=== PATIENT | male | born 1975 | race Hispanic/Latino ===

== ENCOUNTER 2018-01-02 03:17 | Inpatient (IN) | payer BC ==
[2018-01-02 03:50] LABS: BASO % 0.8 % (0.0-2.0); EOS # 0.1 K/uL (0.0-0.7); EOS % 2.2 % (0.0-4.0); HEMOGLOBIN 14.5 g/dL (12.0-18.0); LYMPH # 1.6 K/uL (1.0-4.3); LYMPH % 28.8 % (20.0-40.0); MEAN CELL VOLUME 95.3 fL (80.0-94.0); MEAN CORPUSCULAR HEMOGLOBIN 32.7 pg (27.0-31.0); MEAN CORPUSCULAR HGB CONC 34.3 g/dL (33.0-37.0); MEAN PLATELET VOLUME 8.3 fL (7.2-11.7); MONO # 0.5 K/uL (0.0-0.8); MONO % 8.4 % (0.0-10.0); NEUT # 3.4 K/uL (1.8-7.0); NEUT % 59.8 % (50.0-75.0); NRBC % 0.1 % (0.0-2.0); RBC 4.42 Mil/uL (4.40-5.90); RED CELL DISTRIBUTION WIDTH 15.3 % (11.5-14.5); WHITE BLOOD COUNT 5.7 K/uL (4.8-10.8)
[2018-01-02 03:59] LABS: INR 1.1; PROTHROMBIN TIME 11.8 SECONDS (9.7-12.2)
[2018-01-02 04:03] LABS: ALB/GLOB RATIO 1.4 (1.0-2.1); ALBUMIN 4.2 g/dL (3.5-5.0); ALT/SGPT 28 U/L (21-72); AST/SGOT 22 U/L (17-59); BLOOD UREA NITROGEN 13 mg/dL (9-20); CALCIUM 8.4 mg/dl (8.6-10.4); GFR NON-AFRICAN AMERICAN > 60
[2018-01-02 04:15] LABS: B-TYPE NATRIURETIC PEPTIDE 712 pg/mL (0-450)
[2018-01-02] MEDS ORDERED: Iodixanol 320 MG/ML 100 ML BOTTLE IV ONE (04:42)
--- NOTE | 2018-01-02 06:29 | C.PDOC ---
History Of Present Illness <John Chiang DO - Last Filed: 01/02/18 06:42> <Jennifer Patrick - Last Filed: 01/02/18 07:30> 42 y/o male presents to the ED c/o mild SOB for the past three. The patient reports feeling like his heart is racing. He has a Hx of CHF but is noncompliant with his medication for the past two months. The patient denies any fever, cough or chest pain. (Mariia OLIVARESJohn) History Per: Patient History/Exam Limitations: no limitations Onset/Duration Of Symptoms: Days Current Symptoms Are (Timing): Still Present Exacerbating Factor(s): denies: Coughing Associated Symptoms: denies: Fever, Chest Pain, Productive Cough Recent travel outside of the [place]: No <John Chiang DO - Last Filed: 01/02/18 06:42> <Jennifer Patrick - Last Filed: 01/02/18 07:30> Time Seen by Provider: 01/02/18 03:28 Chief Complaint (Nursing): Shortness Of Breath Past Medical History Reviewed: Historical Data, Nursing Documentation, Vital Signs - Medical History PMH: Atrial Fibrillation, Cardia Arrhythmia, CHF, HTN, TIA Surgical History: No Surg Hx Family History: States: Unknown Family Hx - Social History Hx Tobacco Use: Yes Hx Alcohol Use: Yes (3 x a week) Hx Substance Use: No - Immunization History Hx Tetanus Toxoid Vaccination: No Hx Influenza Vaccination: No Hx Pneumococcal Vaccination: No <John Chiang DO - Last Filed: 01/02/18 06:42> Vital Signs: Last Vital Signs Temp 98.6 F 01/02/18 03:22 Pulse 98 H 01/02/18 06:27 Resp 20 01/02/18 06:27 BP 94/64 L 01/02/18 06:27 Pulse Ox 95 01/02/18 06:43 Review Of Systems Except As Marked, All Systems Reviewed And Found Negative. Constitutional: Negative for: Fever Cardiovascular: Negative for: Chest Pain Respiratory: Positive for: Shortness of Breath. Negative for: Cough <John Chiang DO - Last Filed: 01/02/18 06:42> Physical Exam - Physical Exam Appears: Well, Non-toxic, No Acute Distress Skin: Normal Color, Warm, Dry Head: Atraumatic, Normacephalic Eye(s): bilateral: PERRL, EOMI Oral Mucosa: Moist Chest: Symmetrical Cardiovascular: Rhythm Irregular, Other (chronic renal stasis) Respiratory: Rales (at the base) Gastrointestinal/Abdominal: Soft, No Tenderness, Other (morbidly obese) Extremity: No Calf Tenderness Extremity: Bilateral: Other (LE edema) Neurological/Psych: Oriented x3, Normal Speech <John Chiang DO - Last Filed: 01/02/18 06:42> ED Course And Treatment - Laboratory Results Result Diagrams: 01/02/18 03:47 01/02/18 03:47 ECG: Interpreted By Me Interpretation Of ECG: A-Fib 116 bpm with normal axis O2 Sat by Pulse Oximetry: 95 (RA) Pulse Ox Interpretation: Normal - Other Rad Chest X-Ray: Interpreted by Me Interpretation: CHF. No change - CT Scan/US Angio Chest Other Rad Studies (CT/US): Read By Radiologist, Radiology Report Reviewed CT/US Interpretation: FINDINGS: Pulmonary arteries: The pulmonary artery enhancement is less than 137 Hounsfield unit. Pulmonary embolus cannot be evaluated. Aorta: Normal. No aortic aneurysm. No aortic dissection. Lungs: Mild parabronchial cuffing, with mild basilar infiltration which can be seen with bronchitis,. reactive airway disease or viral pneumonitis versus mild failure. Pleural space: Normal. No pneumothorax. No pleural effusion. Heart: Cardiomegaly. Mediastinum: There is amorphous material within the esophagus to the level of upper thoracic. esophagus. These findings can represent delayed emptying versus gastroesophageal reflux. Possible. upper esophageal diverticulum versus patulous esophagus seen on image 29 series 2. Small hiatal. hernia. Bones/joints: There are anterior flowing osteophytes bridging more than 4 vertebral bodies. suggestive of dish. Soft tissues: Bilateral gynecomastia. Lymph nodes: Small hilar lymph nodes. Adrenals: The left adrenal gland is incompletely seen. IMPRESSION: 1. The pulmonary artery enhancement is less than 137 Hounsfield unit despite 2 attempts. Pulmonary. embolus cannot be evaluated. 2. Mild parabronchial cuffing, with mild basilar infiltration which can be seen with bronchitis, reactive. airway disease or viral pneumonitis versus mild failure. <John Chiang DO - Last Filed: 01/02/18 06:42> - Laboratory Results Result Diagrams: 01/02/18 03:47 01/02/18 03:47 <Ho,Jennifer - Last Filed: 01/02/18 07:30> Progress <John Chiang DO - Last Filed: 01/02/18 06:42> - Data Reviewed Data Reviewed: Lab, Diagnostic imaging, EKG, Old records <Jennifer Patrick - Last Filed: 01/02/18 07:30> - Re-Evaluation Re-evaluation Note: 01/02/18 07:24 NARD SLEEPING BUT AROUSE TO LIGHT STIM. [id number] D/W DR Rehana LYONS, STATES IS AWAY AND TO ADMIT PT TO HOSP SERVICE 01/02/18 07:28 D/W DR LEYVA WILL ADMIT (Jennifer Patrick) Medical Decision Making <John Chiang DO - Last Filed: 01/02/18 06:42> <Jennifer Patrick - Last Filed: 01/02/18 07:30> Medical Decision Making: Impression: 42 y/o male with mild SOB, Hx CHF and nonncomplaint with meds for 2 months Plan: -CT Angio CHest -EKG -Alcohol Serum -B-Type natriuretic -CMP -Digoxin -Troponin I -CBC -PTT -PT -Chest X-Ray -Lasiz 40 mg IV (John Chiang DO) Disposition <John Chiang DO - Last Filed: 01/02/18 06:42> Counseled Patient/Family Regarding: Studies Performed, Diagnosis - Disposition Disposition Time: 07:28 - POA Present On Arrival: None <Jennifer Patrick - Last Filed: 01/02/18 07:30> - Disposition Disposition: HOSPITALIZED Condition: STABLE Forms: [facility] (Italian) - Clinical Impression Clinical Impression: Alcohol use, Dyspnea, CHF exacerbation, Noncompliance Decision To Admit <John Chiang DO - Last Filed: 01/02/18 06:42> - Pt Status Changed To: Hospital Disposition Of: Observation - . Bed Request Type: Telemetry Admitting Physician: Casandra Leyva <Jennifer Patrick - Last Filed: 01/02/18 07:30> - . Patient Diagnosis: Alcohol use, Dyspnea, CHF exacerbation, Noncompliance
[2018-01-02] MEDS ORDERED: Digoxin 500 mcg/2ml (0.5 mg/2ml) Inj IVP STA (06:49)
[2018-01-02 06:55] VITALS: PULSE 105
[2018-01-02] MEDS ORDERED: Digoxin 500 mcg/2ml (0.5 mg/2ml) Inj ONE (06:55)
--- NOTE | 2018-01-02 09:18 | CP.PCM.HP ---
History of Present Illness - History of Present Illness History of Present Illness: PGY-[address] Mclean Patient is a 42 year old male with PMHx CHF, COPD, Afib w/ RVR, alcohol absuse, obesity, medication noncompliance who presents with acute shortness of breath. Patient states that for about the last two days he has becoming increasingly short of breath. Patient states he was drinking last night from 4pm-12am and when he woke up he was having difficulty breathing worse. He has been hospitalized in the past for similar complaints. Pt states his shortness of breath is worse when lying down. Patient states that he takes his medications every day as prescribed, however when I called the pharmacy, they told me he last filled his prescriptions in September and has been long overdue for refills. Patient states he drinks beer 2-3 times/week and has a 20+ pack-year history (1 pack/day). Patient denies dizziness, headache, chest pain, palpitations. Present on Admission - Present on Admission Any Indicators Present on Admission: No Review of Systems - Constitutional Constitutional: absent: Chills, Fatigue, Fever - EENT Eyes: absent: Blurred Vision, Change in Vision Nose/Mouth/Throat: absent: Nasal Congestion, Nasal Discharge, Nasal Obstruction - Cardiovascular Cardiovascular: Dyspnea, Edema (+b/l pedal edema), Leg Edema, Pedal Edema, Rapid Heart Rate. absent: Chest Pain - Respiratory Respiratory: Dyspnea, Wheezing. absent: Cough, Hemoptysis, Chest Congestion, Pain with Coughing - Gastrointestinal Gastrointestinal: absent: Abdominal Pain, Constipation, Cramping, Diarrhea - Musculoskeletal Musculoskeletal: absent: Back Pain, Muscle Weakness, Neck Pain - Neurological Neurological: absent: Abnormal Gait, Abnormal Movements, Dizziness, Headaches, Syncope Past Patient History - Infectious Disease Hx of Infectious Diseases: None - Past Social History Smoking Status: Heavy Smoker > 10 Cigarettes Daily - CARDIAC Hx Atrial Fibrillation: Yes Hx Cardia Arrhythmia: Yes Hx Congestive Heart Failure: Yes Hx Hypertension: Yes - NEUROLOGICAL Hx Transient Ischemic Attacks (TIA): Yes - MUSCULOSKELETAL/RHEUMATOLOGICAL Hx Falls: Yes - PSYCHIATRIC Hx Substance Use: No - ANESTHESIA Hx Anesthesia: Yes Hx Anesthesia Reactions: No Hx Malignant Hyperthermia: No Meds Allergies/Adverse Reactions: Allergies Allergy/AdvReac Type Severity Reaction Status Date / Time No Known Allergies Allergy Unverified 01/02/18 03:28 Physical Exam - Constitutional Appears: No Acute Distress Additional comments: Fatigued/intoxicated - Head Exam Head Exam: ATRAUMATIC, NORMAL INSPECTION - Eye Exam Eye Exam: EOMI, Normal appearance Pupil Exam: NORMAL ACCOMODATION, PERRL - ENT Exam ENT Exam: Mucous Membranes Moist, Normal Exam - Respiratory Exam Respiratory Exam: Wheezes. absent: Accessory Muscle Use, Decreased Breath Sounds, Rales - Cardiovascular Exam Cardiovascular Exam: Tachycardia, Irregular Rhythm, +S1, +S2 - GI/Abdominal Exam GI & Abdominal Exam: Normal Bowel Sounds, Soft Additional comments: +abdominal hernia - Extremities Exam Extremities exam: Positive for: pedal edema, pedal pulses present - Neurological Exam Neurological exam: CN II-XII Intact, Normal Gait, Oriented x3 - Skin Skin Exam: Intact, Warm Additional comments: +Skin mottling/chronic skin changes on lower extremities b/l Results - Vital Signs Recent Vital Signs: Last Vital Signs Temp 98.6 F 01/02/18 03:22 Pulse 125 H 01/02/18 07:32 Resp 25 H 01/02/18 07:32 BP 128/88 01/02/18 07:32 Pulse Ox 100 01/02/18 07:32 - Labs Result Diagrams: 01/02/18 03:47 01/02/18 03:47 Labs: Laboratory Results - last 24 hr 01/02/18 01/02/18 01/02/18 03:47 03:47 03:47 WBC 5.7 RBC 4.42 Hgb 14.5 Hct 42.2 MCV 95.3 H MCH 32.7 H MCHC 34.3 RDW 15.3 H Plt Count 186 MPV 8.3 Neut % (Auto) 59.8 Lymph % (Auto) 28.8 [place] % (Auto) 8.4 Eos % (Auto) 2.2 Baso % (Auto) 0.8 Neut # (Auto) 3.4 Lymph # (Auto) 1.6 [place] # (Auto) 0.5 Eos # (Auto) 0.1 Baso # (Auto) 0.0 PT INR APTT Sodium 137 Potassium 3.7 Chloride 101 Carbon Dioxide 18 L Anion Gap 22 H BUN 13 Creatinine 0.9 Est GFR ( Amer) > 60 Est GFR (Non-Af Amer) > 60 Random Glucose 111 H Calcium 8.4 L Total Bilirubin 0.8 AST 22 ALT 28 Alkaline Phosphatase 57 Troponin I < 0.0120 NT-Pro-B Natriuret Pep 712 H Total Protein 7.2 Albumin 4.2 Globulin 3.0 Albumin/Globulin Ratio 1.4 Digoxin < 0.4 L Alcohol, Quantitative 01/02/18 01/02/18 03:47 04:20 WBC RBC Hgb Hct MCV MCH MCHC RDW Plt Count MPV Neut % (Auto) Lymph % (Auto) [place] % (Auto) Eos % (Auto) Baso % (Auto) Neut # (Auto) Lymph # (Auto) [place] # (Auto) Eos # (Auto) Baso # (Auto) PT 11.8 INR 1.1 APTT 35 H Sodium Potassium Chloride Carbon Dioxide Anion Gap BUN Creatinine Est GFR ( Amer) Est GFR (Non-Af Amer) Random Glucose Calcium Total Bilirubin AST ALT Alkaline Phosphatase Troponin I NT-Pro-B Natriuret Pep Total Protein Albumin Globulin Albumin/Globulin Ratio Digoxin Alcohol, Quantitative 263 H Assessment & Plan - Assessment and Plan (Free Text) Assessment: 1)A Fib with RVR * CBC w dif * CMP * BMP 712 * Coags - INR 1.1 * Mag * TSH * EKG - AFib RVR * Echo - read pending * Cardio consulted - Dr. Moe - help appreciate * Restart home meds * Warfarin 5mg po daily * Protonix 40 mg po daily * Lipitor 40 po daily * Coreg 25 mg po dialy * Lasix 20 po daily * lisinopril 20 po daily * Folic acid 4 mg daily 2) CHF * CBC w dif * CMP * BMP 712 * Coags - INR 1.1 * Mag * TSH * EKG - AFib RVR * Echo - read pending * Cardio consulted - Dr. Moe - help appreciated * Restart home meds * Warfarin 5mg po daily * Protonix 40 mg po daily * Lipitor 40 po daily * Coreg 25 mg po dialy * Lasix 20 po daily * lisinopril 20 po daily * Folic acid 4 mg daily * Thiamine 100 mg daily * Heart healthy diet * Meds: * Asa 81 daily * Crestor 10 po HS 3) COPD, 24 pack-year smoker * CBC w dif * CMP * BMP 712 * Coags - INR 1.1 * Mag * TSH * Restart home meds * Warfarin 5mg po daily * Protonix 40 mg po daily * Lipitor 40 po daily * Coreg 25 mg po dialy * Lasix 20 po daily * lisinopril 20 po daily * Folic acid 4 mg daily * Thiamine 100 mg daily * Continue to encourage smoking cessation 4) Obesity * Heart healthy diet 5) Prophylaxis * DVT: Lovenox 150 SC q12 * GI: Famotidine 20mg PO BID
[2018-01-02 09:31] VITALS: RESP 20
--- NOTE | 2018-01-02 09:46 | CT ---
Date of service: 01/02/2018 PROCEDURE: CT Chest with contrast (Pulmonary Angiogram) HISTORY: SOB r/o PE COMPARISON: None available. TECHNIQUE: Axial computed tomography images were obtained of the chest in the pulmonary arterial phase of enhancement. Coronal and sagittal reformatted images were created and reviewed. Intravenous contrast dose: 100 cc Visipaque Radiation dose: Total exam DLP = 1117.69 mGy-cm. This CT exam was performed using one or more of the following dose reduction techniques: Automated exposure control, adjustment of the mA and/or kV according to patient size, and/or use of iterative reconstruction technique. FINDINGS: This examination is limited due to suboptimal contrast enhancement within the pulmonary arteries. PULMONARY ARTERIES: No gross some filling defects seen within the pulmonary trunk, right and left main lobar or proximal segmental branches. Distal pulmonary arteries cannot be adequately evaluated. AORTA: No acute findings. No thoracic aortic aneurysm. LUNGS: The mild passive/dependent type atelectasis both posterior lower lung santiago. No focal consolidation. . Mild peribronchial cuffing changes are present; rule out sequela of reactive/inflammatory airway disease or viral illness. PLEURAL SPACES: Unremarkable. No effusion or pneumothorax. HEART: The the the the LYMPH NODES: Multiple small nonspecific mediastinal lymph nodes are present. Central airways midline and patent. No large central endoluminal lesions. There is a hiatal hernia with wall thickening of the distal esophagus likely due to protrusion gastric mucosa. Possibility of esophagitis not excluded. BONES, CHEST WALL: Unremarkable. No fracture or destructive lesion OTHER FINDINGS: Changes of mild bilateral gynecomastia. Rounded low-attenuation focus within the posterolateral cortex left kidney likely representing a small cyst though Hounsfield units register in the in the upper teens suggest hyperdense cyst. Followup ultrasound could be performed to confirm. The seen IMPRESSION: Limited study demonstrating no definitive central pulmonary embolus. Repeat study could be performed if necessary. Cardiomegaly. Changes of bilateral gynecomastia.
--- NOTE | 2018-01-02 12:53 | RAD ---
Date of service: 01/02/2018 PROCEDURE: CHEST RADIOGRAPH, 1 VIEW HISTORY: chest pain COMPARISON: Comparison chest 02/25/2015 FINDINGS: LUNGS: Poor inspiration with low lung volumes, crowded bronchovascular markings and mild bibasilar atelectasis. PLEURA: No pneumothorax or pleural fluid seen. CARDIOVASCULAR: Marked cardiomegaly. OSSEOUS STRUCTURES: No significant abnormalities. VISUALIZED UPPER ABDOMEN: Normal. OTHER FINDINGS: None. IMPRESSION: Poor inspiration with low lung volumes, crowded bronchovascular markings and mild bibasilar atelectasis. Marked cardiomegaly.
[2018-01-02] MEDS: Enoxaparin 150 mg Syringe SC SCH (21:27)
[2018-01-03 08:24] LABS: INR 1.2; PROTHROMBIN TIME 12.8 SECONDS (9.7-12.2)
[2018-01-03 08:26] LABS: BASO # 0.1 K/uL (0.0-0.2); BASO % 1.1 % (0.0-2.0); EOS # 0.2 K/uL (0.0-0.7); EOS % 3.2 % (0.0-4.0); HEMOGLOBIN 15.9 g/dL (12.0-18.0); LYMPH # 1.1 K/uL (1.0-4.3); LYMPH % 22.6 % (20.0-40.0); MEAN CELL VOLUME 96.1 fL (80.0-94.0); MEAN CORPUSCULAR HEMOGLOBIN 32.9 pg (27.0-31.0); MEAN CORPUSCULAR HGB CONC 34.2 g/dL (33.0-37.0); MEAN PLATELET VOLUME 8.9 fL (7.2-11.7); MONO # 0.8 K/uL (0.0-0.8); MONO % 15.9 % (0.0-10.0); NEUT # 2.7 K/uL (1.8-7.0); NEUT % 57.2 % (50.0-75.0); NRBC % 0.1 % (0.0-2.0); RBC 4.83 Mil/uL (4.40-5.90); RED CELL DISTRIBUTION WIDTH 15.2 % (11.5-14.5); WHITE BLOOD COUNT 4.8 K/uL (4.8-10.8)
[2018-01-03 08:50] LABS: ALB/GLOB RATIO 1.3 (1.0-2.1); ALBUMIN 3.9 g/dL (3.5-5.0); ALT/SGPT 28 U/L (21-72); AST/SGOT 25 U/L (17-59); BLOOD UREA NITROGEN 16 mg/dL (9-20); CALCIUM 8.6 mg/dl (8.6-10.4); GFR NON-AFRICAN AMERICAN > 60
[2018-01-03] MEDS: Enoxaparin 150 mg Syringe SC SCH ×2 (10:20→21:24)
--- NOTE | 2018-01-03 10:37 | CP.PCM.CON ---
History of Present Illness - History of Present Illness History of Present Illness: CC: Cardiology Evaluation for A Fib Patient is a 42 year old male with PMHx CHF, COPD, Afib w/ RVR, alcohol absuse, obesity, medication noncompliance who presents with acute shortness of breath. Patient states that for about the last two days he has becoming increasingly short of breath. Patient states he was drinking last night from 4pm-12am and when he woke up he was having difficulty breathing worse. He has been hospitalized in the past for similar complaints. Pt states his shortness of breath is worse when lying down. Patient states that he takes his medications every day as prescribed, however when I called the pharmacy, they told me he last filled his prescriptions in September and has been long overdue for refills. Patient states he drinks beer 2-3 times/week and has a 20+ pack-year history (1 pack/day). Patient denies dizziness, headache, chest pain, palpitations. Present on Admission - Present on Admission Any Indicators Present on Admission: No Review of Systems - Constitutional Constitutional: absent: Chills, Fatigue, Fever - EENT Eyes: absent: Blurred Vision, Change in Vision Nose/Mouth/Throat: absent: Nasal Congestion, Nasal Discharge, Nasal Obstruction - Cardiovascular Cardiovascular: Dyspnea, Edema (+b/l pedal edema), Leg Edema, Pedal Edema, Rapid Heart Rate. absent: Chest Pain - Respiratory Respiratory: Dyspnea, Wheezing. absent: Cough, Hemoptysis, Chest Congestion, Pain with Coughing - Gastrointestinal Gastrointestinal: absent: Abdominal Pain, Constipation, Cramping, Diarrhea - Musculoskeletal Musculoskeletal: absent: Back Pain, Muscle Weakness, Neck Pain - Neurological Neurological: absent: Abnormal Gait, Abnormal Movements, Dizziness, Headaches, Syncope Meds Allergies/Adverse Reactions: Allergies Allergy/AdvReac Type Severity Reaction Status Date / Time No Known Allergies Allergy Unverified 01/02/18 03:28 Physical Exam - Constitutional Appears: No Acute Distress Additional comments: Fatigued/intoxicated - Head Exam Head Exam: ATRAUMATIC, NORMAL INSPECTION - Eye Exam Eye Exam: EOMI, Normal appearance Pupil Exam: NORMAL ACCOMODATION, PERRL - ENT Exam ENT Exam: Mucous Membranes Moist, Normal Exam - Respiratory Exam Respiratory Exam: Wheezes. absent: Accessory Muscle Use, Decreased Breath Sounds, Rales - Cardiovascular Exam Cardiovascular Exam: Tachycardia, Irregular Rhythm, +S1, +S2 - GI/Abdominal Exam GI & Abdominal Exam: Normal Bowel Sounds, Soft Additional comments: +abdominal hernia - Extremities Exam Extremities exam: Positive for: pedal edema, pedal pulses present - Neurological Exam Neurological exam: CN II-XII Intact, Normal Gait, Oriented x3 - Skin Skin Exam: Intact, Warm Additional comments: +Skin mottling/chronic skin changes on lower extremities b/l CC Past Patient History - Infectious Disease Hx of Infectious Diseases: None - Past Medical History & Family History Past Medical History?: Yes - Past Social History Smoking Status: Heavy Smoker > 10 Cigarettes Daily - CARDIAC Hx Atrial Fibrillation: Yes Hx Cardia Arrhythmia: Yes Hx Congestive Heart Failure: Yes Hx Hypertension: Yes - PULMONARY Hx Respiratory Disorders: Yes - NEUROLOGICAL Hx Transient Ischemic Attacks (TIA): Yes - HEENT Hx HEENT Problems: No - RENAL Hx Chronic Kidney Disease: No - ENDOCRINE/METABOLIC Hx Endocrine Disorders: No - HEMATOLOGICAL/ONCOLOGICAL Hx Blood Disorders: No - INTEGUMENTARY Hx Dermatological Problems: Yes Hx Cellulitis: Yes - MUSCULOSKELETAL/RHEUMATOLOGICAL Hx Falls: Yes - GASTROINTESTINAL Hx Gastrointestinal Disorders: No - GENITOURINARY/GYNECOLOGICAL Hx Genitourinary Disorders: No - PSYCHIATRIC Hx Substance Use: No - SURGICAL HISTORY Hx Surgeries: No - ANESTHESIA Hx Anesthesia: Yes Hx Anesthesia Reactions: No Hx Malignant Hyperthermia: No Meds Allergies/Adverse Reactions: Allergies Allergy/AdvReac Type Severity Reaction Status Date / Time No Known Allergies Allergy Unverified 01/02/18 03:28 - Medications Medications: Current Medications Aspirin (Aspirin Chewable) 81 mg PO DAILY [facility] Last Admin: 01/03/18 10:19 Dose: 81 mg Carvedilol (Coreg) 25 mg PO BID [facility] Last Admin: 01/03/18 10:22 Dose: 25 mg Chlordiazepoxide (Librium) 25 mg PO Q8 PRN PRN Reason: Agitation Enoxaparin Sodium (Lovenox) 150 mg SC Q12 [facility] Last Admin: 01/03/18 10:20 Dose: 150 mg Famotidine (Pepcid) 20 mg PO BID [facility] Last Admin: 01/03/18 10:19 Dose: 20 mg Folic Acid (Folic Acid) 1 mg PO DAILY [facility] Last Admin: 01/03/18 10:19 Dose: 1 mg Furosemide (Lasix) 20 mg IVP BID [facility] Last Admin: 09/02/18 10:19 Dose: 20 mg Rosuvastatin Calcium (Crestor) 10 mg PO HS [facility] Last Admin: 01/02/18 21:25 Dose: 10 mg Thiamine HCl (Vitamin B1 Tab) 100 mg PO DAILY [facility] Last Admin: 01/03/18 10:19 Dose: 100 mg Warfarin Sodium (Coumadin) 7.5 mg PO 1800 [facility] Stop: 01/03/18 18:01 Results - Vital Signs Recent Vital Signs: Last Vital Signs Temp 98.1 F 01/03/18 07:00 Pulse 74 01/03/18 07:00 Resp 20 01/03/18 07:00 BP 133/82 01/03/18 10:22 Pulse Ox 98 01/03/18 07:00 - Labs Result Diagrams: 01/03/18 08:13 01/03/18 08:13 Labs: Laboratory Results - last 24 hr 01/02/18 01/03/18 01/03/18 04:20 08:13 08:13 WBC 4.8 RBC 4.83 Hgb 15.9 Hct 46.4 MCV 96.1 H MCH 32.9 H MCHC 34.2 RDW 15.2 H Plt Count 187 MPV 8.9 Neut % (Auto) 57.2 Lymph % (Auto) 22.6 [place] % (Auto) 15.9 H Eos % (Auto) 3.2 Baso % (Auto) 1.1 Neut # (Auto) 2.7 Lymph # (Auto) 1.1 [place] # (Auto) 0.8 Eos # (Auto) 0.2 Baso # (Auto) 0.1 PT INR Sodium 141 Potassium 3.7 Chloride 104 Carbon Dioxide 27 Anion Gap 14 BUN 16 Creatinine 0.8 Est GFR ( Amer) > 60 Est GFR (Non-Af Amer) > 60 Random Glucose 95 Calcium 8.6 Magnesium 2.0 2.1 Total Bilirubin 1.7 H AST 25 ALT 28 Alkaline Phosphatase 61 Total Protein 6.9 Albumin 3.9 Globulin 3.0 Albumin/Globulin Ratio 1.3 TSH 3rd Generation 0.56 Alcohol, Quantitative 263 H 01/03/18 08:13 WBC RBC Hgb Hct MCV MCH MCHC RDW Plt Count MPV Neut % (Auto) Lymph % (Auto) [place] % (Auto) Eos % (Auto) Baso % (Auto) Neut # (Auto) Lymph # (Auto) [place] # (Auto) Eos # (Auto) Baso # (Auto) PT 12.8 H INR 1.2 Sodium Potassium Chloride Carbon Dioxide Anion Gap BUN Creatinine Est GFR ( Amer) Est GFR (Non-Af Amer) Random Glucose Calcium Magnesium Total Bilirubin AST ALT Alkaline Phosphatase Total Protein Albumin Globulin Albumin/Globulin Ratio TSH 3rd Generation Alcohol, Quantitative Assessment & Plan - Assessment and Plan (Free Text) Assessment: 1)A Fib with RVR * CBC w dif * CMP * BMP 712 * Coags - INR 1.1 * Mag * TSH * EKG - AFib RVR * Echo - read pending * Cardio consulted - Dr. Moe - help appreciate * Restart home meds * Warfarin 5mg po daily * Protonix 40 mg po daily * Lipitor 40 po daily * Coreg 25 mg po dialy * Lasix 20 po daily * lisinopril 20 po daily * Folic acid 4 mg daily 2) CHF * CBC w dif * CMP * BMP 712 * Coags - INR 1.1 * Mag * TSH * EKG - AFib RVR * Echo - read pending * Cardio consulted - Dr. Moe - help appreciated * Restart home meds * Warfarin 5mg po daily * Protonix 40 mg po daily * Lipitor 40 po daily * Coreg 25 mg po dialy * Lasix 20 po daily * lisinopril 20 po daily * Folic acid 4 mg daily * Thiamine 100 mg daily * Heart healthy diet * Meds: * Asa 81 daily * Crestor 10 po HS 3) COPD, 24 pack-year smoker * CBC w dif * CMP * BMP 712 * Coags - INR 1.1 * Mag * TSH * Restart home meds * Warfarin 5mg po daily * Protonix 40 mg po daily * Lipitor 40 po daily * Coreg 25 mg po dialy * Lasix 20 po daily * lisinopril 20 po daily * Folic acid 4 mg daily * Thiamine 100 mg daily * Continue to encourage smoking cessation 4) Obesity * Heart healthy diet 5) Prophylaxis * DVT: Lovenox 150 SC q12 * GI: Famotidine 20mg PO BID Patient stated his Financial Administration Officer is Dr. Diaz. Will notify Dr. Diaz for follow up
--- NOTE | 2018-01-03 19:10 | CP.PCM.CON ---
Past Patient History - Infectious Disease Hx of Infectious Diseases: None - Past Medical History & Family History Past Medical History?: Yes - Past Social History Smoking Status: Heavy Smoker > 10 Cigarettes Daily - CARDIAC Hx Atrial Fibrillation: Yes Hx Cardia Arrhythmia: Yes Hx Congestive Heart Failure: Yes Hx Hypertension: Yes - PULMONARY Hx Respiratory Disorders: Yes - NEUROLOGICAL Hx Transient Ischemic Attacks (TIA): Yes - HEENT Hx HEENT Problems: No - RENAL Hx Chronic Kidney Disease: No - ENDOCRINE/METABOLIC Hx Endocrine Disorders: No - HEMATOLOGICAL/ONCOLOGICAL Hx Blood Disorders: No - INTEGUMENTARY Hx Dermatological Problems: Yes Hx Cellulitis: Yes - MUSCULOSKELETAL/RHEUMATOLOGICAL Hx Falls: Yes - GASTROINTESTINAL Hx Gastrointestinal Disorders: No - GENITOURINARY/GYNECOLOGICAL Hx Genitourinary Disorders: No - PSYCHIATRIC Hx Substance Use: No - SURGICAL HISTORY Hx Surgeries: No - ANESTHESIA Hx Anesthesia: Yes Hx Anesthesia Reactions: No Hx Malignant Hyperthermia: No Meds Allergies/Adverse Reactions: Allergies Allergy/AdvReac Type Severity Reaction Status Date / Time No Known Allergies Allergy Unverified 01/02/18 03:28 - Medications Medications: Current Medications Aspirin (Aspirin Chewable) 81 mg PO DAILY [facility] Last Admin: 01/03/18 10:19 Dose: 81 mg Carvedilol (Coreg) 25 mg PO BID [facility] Last Admin: 01/03/18 17:40 Dose: 25 mg Chlordiazepoxide (Librium) 25 mg PO Q8 PRN PRN Reason: Agitation Enoxaparin Sodium (Lovenox) 150 mg SC Q12 [facility] Last Admin: 01/03/18 10:20 Dose: 150 mg Famotidine (Pepcid) 20 mg PO BID [facility] Last Admin: 01/03/18 17:40 Dose: 20 mg Folic Acid (Folic Acid) 1 mg PO DAILY [facility] Last Admin: 01/03/18 10:19 Dose: 1 mg Furosemide (Lasix) 20 mg IVP BID [facility] Last Admin: 01/03/18 17:39 Dose: 20 mg Rosuvastatin Calcium (Crestor) 10 mg PO HS [facility] Last Admin: 01/02/18 21:25 Dose: 10 mg Thiamine HCl (Vitamin B1 Tab) 100 mg PO DAILY [facility] Last Admin: 01/03/18 10:19 Dose: 100 mg Results - Vital Signs Recent Vital Signs: Last Vital Signs Temp 97.8 F 01/03/18 15:00 Pulse 79 01/03/18 15:00 Resp 20 01/03/18 15:00 BP 130/80 01/03/18 17:40 Pulse Ox 97 01/03/18 15:00 - Labs Result Diagrams: 01/03/18 08:13 01/03/18 08:13 Labs: Laboratory Results - last 24 hr 01/03/18 01/03/18 01/03/18 08:13 08:13 08:13 WBC 4.8 RBC 4.83 Hgb 15.9 Hct 46.4 MCV 96.1 H MCH 32.9 H MCHC 34.2 RDW 15.2 H Plt Count 187 MPV 8.9 Neut % (Auto) 57.2 Lymph % (Auto) 22.6 [place] % (Auto) 15.9 H Eos % (Auto) 3.2 Baso % (Auto) 1.1 Neut # (Auto) 2.7 Lymph # (Auto) 1.1 [place] # (Auto) 0.8 Eos # (Auto) 0.2 Baso # (Auto) 0.1 PT 12.8 H INR 1.2 Sodium 141 Potassium 3.7 Chloride 104 Carbon Dioxide 27 Anion Gap 14 BUN 16 Creatinine 0.8 Est GFR ( Amer) > 60 Est GFR (Non-Af Amer) > 60 Random Glucose 95 Calcium 8.6 Magnesium 2.1 Total Bilirubin 1.7 H AST 25 ALT 28 Alkaline Phosphatase 61 Total Protein 6.9 Albumin 3.9 Globulin 3.0 Albumin/Globulin Ratio 1.3
--- NOTE | 2018-01-03 19:10 | CP.PCM.PN ---
Subjective - Date & Time of Evaluation Date of Evaluation: 01/03/18 Objective - Vital Signs/Intake and Output Vital Signs (last 24 hours): Temp Pulse Resp BP Pulse Ox 97.8 F 79 20 130/80 97 01/03/18 15:00 01/03/18 15:00 01/03/18 15:00 01/03/18 17:40 01/03/18 15:00 - Medications Medications: Current Medications Aspirin (Aspirin Chewable) 81 mg PO DAILY [facility] Last Admin: 01/03/18 10:19 Dose: 81 mg Carvedilol (Coreg) 25 mg PO BID [facility] Last Admin: 01/03/18 17:40 Dose: 25 mg Chlordiazepoxide (Librium) 25 mg PO Q8 PRN PRN Reason: Agitation Enoxaparin Sodium (Lovenox) 150 mg SC Q12 [facility] Last Admin: 01/03/18 10:20 Dose: 150 mg Famotidine (Pepcid) 20 mg PO BID [facility] Last Admin: 01/03/18 17:40 Dose: 20 mg Folic Acid (Folic Acid) 1 mg PO DAILY [facility] Last Admin: 01/03/18 10:19 Dose: 1 mg Furosemide (Lasix) 20 mg IVP BID [facility] Last Admin: 01/03/18 17:39 Dose: 20 mg Rosuvastatin Calcium (Crestor) 10 mg PO HS [facility] Last Admin: 01/02/18 21:25 Dose: 10 mg Thiamine HCl (Vitamin B1 Tab) 100 mg PO DAILY [facility] Last Admin: 01/03/18 10:19 Dose: 100 mg - Labs Labs: 01/03/18 08:13 01/03/18 08:13 PT 12.8 SECONDS (9.7-12.2) H 01/03/18 08:13 INR 1.2 01/03/18 08:13 APTT 35 SECONDS (21-34) H 01/02/18 03:47
--- NOTE | 2018-01-03 19:54 | CP.PCM.PN ---
<Jose Alicia - Last Filed: 01/03/18 19:51> Subjective - Date & Time of Evaluation Date of Evaluation: 01/03/18 Time of Evaluation: 19:52 - Subjective Subjective: PGY-[address] Mclean Pt seen and examined at bedside. Patient is clinically markedly improved. He is not short of breath, he is not fatigued. Patient seen up walking around the hallway. Patient request psych consult for help with his alcohol abuse problem , psych consulted. Denies shortness of breath, fatigue, chest pain, palpitations, dizziness, headache. Objective - Vital Signs/Intake and Output Vital Signs (last 24 hours): Temp Pulse Resp BP Pulse Ox 97.8 F 79 20 130/80 97 01/03/18 15:00 01/03/18 15:00 01/03/18 15:00 01/03/18 17:40 01/03/18 15:00 - Medications Medications: Current Medications Aspirin (Aspirin Chewable) 81 mg PO DAILY [facility] Last Admin: 01/03/18 10:19 Dose: 81 mg Carvedilol (Coreg) 25 mg PO BID [facility] Last Admin: 01/03/18 17:40 Dose: 25 mg Chlordiazepoxide (Librium) 25 mg PO Q8 PRN PRN Reason: Agitation Enoxaparin Sodium (Lovenox) 150 mg SC Q12 [facility] Last Admin: 01/03/18 10:20 Dose: 150 mg Famotidine (Pepcid) 20 mg PO BID [facility] Last Admin: 01/03/18 17:40 Dose: 20 mg Folic Acid (Folic Acid) 1 mg PO DAILY [facility] Last Admin: 01/03/18 10:19 Dose: 1 mg Furosemide (Lasix) 20 mg IVP BID [facility] Last Admin: 01/03/18 17:39 Dose: 20 mg Rosuvastatin Calcium (Crestor) 10 mg PO HS [facility] Last Admin: 01/02/18 21:25 Dose: 10 mg Thiamine HCl (Vitamin B1 Tab) 100 mg PO DAILY [facility] Last Admin: 01/03/18 10:19 Dose: 100 mg - Labs Labs: 01/03/18 08:13 01/03/18 08:13 PT 12.8 SECONDS (9.7-12.2) H 01/03/18 08:13 INR 1.2 01/03/18 08:13 APTT 35 SECONDS (21-34) H 01/02/18 03:47 - Constitutional Appears: Well, No Acute Distress - Head Exam Head Exam: ATRAUMATIC, NORMAL INSPECTION - Eye Exam Eye Exam: EOMI, Normal appearance Pupil Exam: NORMAL ACCOMODATION, PERRL - ENT Exam ENT Exam: Mucous Membranes Moist, Normal Exam - Respiratory Exam Respiratory Exam: Clear to Ausculation Bilateral, NORMAL BREATHING PATTERN - Cardiovascular Exam Cardiovascular Exam: REGULAR RHYTHM, +S1, +S2 - GI/Abdominal Exam GI & Abdominal Exam: Soft, Normal Bowel Sounds Additional comments: +reducible abd hernia - Extremities Exam Extremities Exam: Pedal Edema (b/l, chronic) - Neurological Exam Neurological Exam: Alert, Awake, CN II-XII Intact, Normal Gait, Oriented x3 - Skin Skin Exam: Dry, Intact, Mottled (chronic skin changes on legs b/l), Warm Assessment and Plan - Assessment and Plan (Free Text) Assessment: 1)A Fib with RVR * CBC w dif * CMP * BMP 712 * Coags - INR 1.1 * Mag * TSH * EKG - AFib RVR * Echo - read pending * Cardio consulted - Dr. Moe - help appreciate * Restart home meds * Warfarin 5mg po daily * Protonix 40 mg po daily * Lipitor 40 po daily * Coreg 25 mg po dialy * Lasix 20 po daily * lisinopril 20 po daily * Folic acid 4 mg daily 2) CHF * CBC w dif * CMP * BMP 712 * Coags - INR 1.1 * Mag * TSH * EKG - AFib RVR * Echo - read pending * Cardio consulted - Dr. Moe - help appreciated * Pt's Telecommunications Network Engineer is Dr. Diaz, who has been notified of this patient; help appreciated * Restart home meds * Warfarin 5mg po daily * Protonix 40 mg po daily * Lipitor 40 po daily * Coreg 25 mg po dialy * Lasix 20 po daily * lisinopril 20 po daily * Folic acid 4 mg daily * Thiamine 100 mg daily * Heart healthy diet * Meds: * Asa 81 daily * Crestor 10 po HS 3) COPD, 24 pack-year smoker * CBC w dif * CMP * BMP 712 * Coags - INR 1.1 * Mag * TSH * Restart home meds * Warfarin 5mg po daily * Protonix 40 mg po daily * Lipitor 40 po daily * Coreg 25 mg po dialy * Lasix 20 po daily * lisinopril 20 po daily * Folic acid 4 mg daily * Thiamine 100 mg daily * Continue to encourage smoking cessation 4) Obesity * Heart healthy diet 5) Alcohol Abuse * Psych consulted (Dr. Bob) per patient request and patient would like help with his alcohol abuse problem --> help appreciated 6) Prophylaxis * DVT: Lovenox 150 SC q12 * GI: Famotidine 20mg PO BID <Terry Mclean - Last Filed: 01/03/18 20:36> Objective - Vital Signs/Intake and Output Vital Signs (last 24 hours): Temp Pulse Resp BP Pulse Ox 97.8 F 80 20 130/80 97 01/03/18 15:00 01/03/18 18:00 01/03/18 15:00 01/03/18 17:40 01/03/18 15:00 - Medications Medications: Current Medications Aspirin (Aspirin Chewable) 81 mg PO DAILY [facility] Last Admin: 01/03/18 10:19 Dose: 81 mg Carvedilol (Coreg) 25 mg PO BID [facility] Last Admin: 01/03/18 17:40 Dose: 25 mg Chlordiazepoxide (Librium) 25 mg PO Q8 PRN PRN Reason: Agitation Enoxaparin Sodium (Lovenox) 150 mg SC Q12 [facility] Last Admin: 01/03/18 10:20 Dose: 150 mg Famotidine (Pepcid) 20 mg PO BID [facility] Last Admin: 01/03/18 17:40 Dose: 20 mg Folic Acid (Folic Acid) 1 mg PO DAILY [facility] Last Admin: 01/03/18 10:19 Dose: 1 mg Furosemide (Lasix) 20 mg IVP BID [facility] Last Admin: 01/03/18 17:39 Dose: 20 mg Rosuvastatin Calcium (Crestor) 10 mg PO HS [facility] Last Admin: 01/02/18 21:25 Dose: 10 mg Thiamine HCl (Vitamin B1 Tab) 100 mg PO DAILY [facility] Last Admin: 01/03/18 10:19 Dose: 100 mg - Labs Labs: 01/03/18 08:13 01/03/18 08:13 PT 12.8 SECONDS (9.7-12.2) H 01/03/18 08:13 INR 1.2 01/03/18 08:13 APTT 35 SECONDS (21-34) H 01/02/18 03:47 Attending/Attestation - Attestation I have personally seen and examined this patient.: Yes I have fully participated in the care of the patient.: Yes I have reviewed all pertinent clinical information, including history, physical exam and plan: Yes Notes (Text): Covering medical service for DR Rehana Vidal Seen and examined.patient more alert and oriented,No in alcohol withdrawal. Denies palpitation. Patient was seen by Dr Moe last night. Patient was seen by Dr Diaz in the past and consult requested . Continue his coumadin,lovenox to bridge,aspirin,coreg ,crestor,folic acid and thiamine I will increase his coumadin to 7.5mg tonight follow INR Discussed about compliance of cardiac meds including Coumadin to prevent complication including CVA. Patient appreciate my advice. Assessment and the plan discussed with the resident and I agree with the documentation of the resident follow echo.He had cath at [facility] in september [address] Kelly. Recommended to use life vest. Not using.Not taking his meds.Not sure about the cath finding.Alcoholic cardiomyopathy? We will follow his ECHO
--- NOTE | 2018-01-04 07:12 | CP.PCM.CON ---
History of Present Illness - History of Present Illness History of Present Illness: CARDIOLOGY CONSULT NOTE Reason for consult: afib HPI: Pt is a 42 yo man with hx of persistent AF (on warfarin); LV dysfunction; COPD; active smoker; ETOH abuse; obesity; medication noncompliance who presents with 2 days of exertional SOB and orthopnea. Associated with + bilateral leg edema. No chest pain, palpitations, dizziness or syncope. [facility] came [facility], and found to have Afib with RVR. Cardiology now consulted. ROS: as above, otherwise negative PMH: as above SHx: + tobacco, + etoh, no drugs FH: no premature CAD Meds: reviewed Allergies: reviewed Past Patient History - Infectious Disease Hx of Infectious Diseases: None - Past Medical History & Family History Past Medical History?: Yes - Past Social History Smoking Status: Heavy Smoker > 10 Cigarettes Daily - CARDIAC Hx Atrial Fibrillation: Yes Hx Cardia Arrhythmia: Yes Hx Congestive Heart Failure: Yes Hx Hypertension: Yes - PULMONARY Hx Respiratory Disorders: Yes - NEUROLOGICAL Hx Transient Ischemic Attacks (TIA): Yes - HEENT Hx HEENT Problems: No - RENAL Hx Chronic Kidney Disease: No - ENDOCRINE/METABOLIC Hx Endocrine Disorders: No - HEMATOLOGICAL/ONCOLOGICAL Hx Blood Disorders: No - INTEGUMENTARY Hx Dermatological Problems: Yes Hx Cellulitis: Yes - MUSCULOSKELETAL/RHEUMATOLOGICAL Hx Falls: Yes - GASTROINTESTINAL Hx Gastrointestinal Disorders: No - GENITOURINARY/GYNECOLOGICAL Hx Genitourinary Disorders: No - PSYCHIATRIC Hx Substance Use: No - SURGICAL HISTORY Hx Surgeries: No - ANESTHESIA Hx Anesthesia: Yes Hx Anesthesia Reactions: No Hx Malignant Hyperthermia: No Meds Allergies/Adverse Reactions: Allergies Allergy/AdvReac Type Severity Reaction Status Date / Time No Known Allergies Allergy Unverified 01/02/18 03:28 - Medications Medications: Current Medications Aspirin (Aspirin Chewable) 81 mg PO DAILY [facility] Last Admin: 01/03/18 10:19 Dose: 81 mg Carvedilol (Coreg) 25 mg PO BID [facility] Last Admin: 01/03/18 17:40 Dose: 25 mg Chlordiazepoxide (Librium) 25 mg PO Q8 PRN PRN Reason: Agitation Enoxaparin Sodium (Lovenox) 150 mg SC Q12 [facility] Last Admin: 01/03/18 21:24 Dose: 150 mg Famotidine (Pepcid) 20 mg PO BID [facility] Last Admin: 09/02/18 17:40 Dose: 20 mg Folic Acid (Folic Acid) 1 mg PO DAILY [facility] Last Admin: 01/03/18 10:19 Dose: 1 mg Furosemide (Lasix) 20 mg IVP BID [facility] Last Admin: 01/03/18 17:39 Dose: 20 mg Rosuvastatin Calcium (Crestor) 10 mg PO HS [facility] Last Admin: 01/03/18 21:23 Dose: 10 mg Thiamine HCl (Vitamin B1 Tab) 100 mg PO DAILY [facility] Last Admin: 01/03/18 10:19 Dose: 100 mg Physical Exam - Constitutional Appears: Well - Head Exam Head Exam: ATRAUMATIC - ENT Exam ENT Exam: Mucous Membranes Moist - Respiratory Exam Respiratory Exam: NORMAL BREATHING PATTERN - Cardiovascular Exam Cardiovascular Exam: Irregular Rhythm, +S1, +S2. absent: Systolic Murmur - GI/Abdominal Exam GI & Abdominal Exam: Soft. absent: Tenderness - Extremities Exam Extremities exam: Positive for: pedal edema - Psychiatric Exam Psychiatric exam: Normal Affect - Skin Skin Exam: Warm Results - Vital Signs Recent Vital Signs: Last Vital Signs Temp 98.2 F 01/03/18 23:30 Pulse 78 01/04/18 00:33 Resp 20 01/03/18 23:30 BP 139/98 H 01/04/18 04:15 Pulse Ox 97 01/03/18 23:30 - Labs Result Diagrams: 01/03/18 08:13 01/03/18 08:13 Labs: Laboratory Results - last 24 hr 01/03/18 01/03/18 01/03/18 08:13 08:13 08:13 WBC 4.8 RBC 4.83 Hgb 15.9 Hct 46.4 MCV 96.1 H MCH 32.9 H MCHC 34.2 RDW 15.2 H Plt Count 187 MPV 8.9 Neut % (Auto) 57.2 Lymph % (Auto) 22.6 [place] % (Auto) 15.9 H Eos % (Auto) 3.2 Baso % (Auto) 1.1 Neut # (Auto) 2.7 Lymph # (Auto) 1.1 [place] # (Auto) 0.8 Eos # (Auto) 0.2 Baso # (Auto) 0.1 PT 12.8 H INR 1.2 Sodium 141 Potassium 3.7 Chloride 104 Carbon Dioxide 27 Anion Gap 14 BUN 16 Creatinine 0.8 Est GFR ( Amer) > 60 Est GFR (Non-Af Amer) > 60 Random Glucose 95 Calcium 8.6 Magnesium 2.1 Total Bilirubin 1.7 H AST 25 ALT 28 Alkaline Phosphatase 61 Total Protein 6.9 Albumin 3.9 Globulin 3.0 Albumin/Globulin Ratio 1.3 - Impressions Impression: Afib, NSST's Assessment & Plan - Assessment and Plan (Free Text) Assessment: 1. Persistent AFib -- now better rate controlled, on warfarin 2. Acute on chronic systolic HF 3. LVEF 20-25% -- Per my review of echo 01/02/18 Plan: 1. Change lasix to 40mg PO daily 2. Cont coreg for rate control 3. Cont warfarin 7.5mg QHS for stroke prevention -- check INR in [address] Diaz's office 4. Start lisinopril 10mg daily for LV dysfunction and better BP control 5. Possible outpt ICD if LV dysfunction persists despite medical therapy -- will need to follow up with Dr. Diaz Patient is euvolemic now and rate controlled He is CV stable for discharge today Follow up with Dr. Diaz in 1-2 weeks
[2018-01-04 08:04] LABS: BASO # 0.1 K/uL (0.0-0.2); BASO % 1.3 % (0.0-2.0); EOS # 0.2 K/uL (0.0-0.7); EOS % 3.5 % (0.0-4.0); HEMOGLOBIN 16.3 g/dL (12.0-18.0); INR 1.2; LYMPH # 1.2 K/uL (1.0-4.3); LYMPH % 26.1 % (20.0-40.0); MEAN CELL VOLUME 96.2 fL (80.0-94.0); MEAN CORPUSCULAR HGB CONC 34.3 g/dL (33.0-37.0); MEAN PLATELET VOLUME 8.7 fL (7.2-11.7); MONO # 0.7 K/uL (0.0-0.8); MONO % 14.6 % (0.0-10.0); NEUT # 2.5 K/uL (1.8-7.0); NEUT % 54.5 % (50.0-75.0); NRBC % 0.1 % (0.0-2.0); PROTHROMBIN TIME 13.1 SECONDS (9.7-12.2); RBC 4.95 Mil/uL (4.40-5.90); RED CELL DISTRIBUTION WIDTH 15.1 % (11.5-14.5); WHITE BLOOD COUNT 4.6 K/uL (4.8-10.8)
[2018-01-04 08:18] LABS: ALB/GLOB RATIO 1.1 (1.0-2.1); ALBUMIN 3.9 g/dL (3.5-5.0); ALT/SGPT 27 U/L (21-72); AST/SGOT 27 U/L (17-59); BLOOD UREA NITROGEN 17 mg/dL (9-20); CALCIUM 8.9 mg/dl (8.6-10.4); GFR NON-AFRICAN AMERICAN > 60
--- NOTE | 2018-01-04 10:06 | PCM.PSYCH ---
Initial Psychiatric Evaluation - Initial Psychiatric Evaluation Type of Admission: Voluntary Legal Status: Capacity Chief Complaint (in patient's own words): "Anxious a little" History of Present Illness and Precipitating Events: The pt is seen, chart reviewed and case discussed. Consult was requested for his alcohol use d/o He is a 43 y/o WM, single, no child, employed as a security person, lives alone He admits to drinking 3x/week and "a lot, like a case or more." He denies any significant withdrawal sxs but also admits that he feels "a little shaky and anxious"" when he doesn't drink. He passed out and brought here and had arrhythmias. No drugs, MJ, some cigarettes 2 ppwk No psych hx but has anxiety only Medical: HTN, obese Family psych hx: Uncles were alcoholics Current Medications: Active Medications Generic Name Dose Route Start Last Admin Trade Name Freq PRN Reason Stop Dose Admin Aspirin 81 mg 01/02/18 10:00 01/03/18 10:19 Aspirin Chewable PO 81 mg DAILY [facility] Administration Carvedilol 25 mg 01/02/18 18:00 01/03/18 17:40 Coreg PO 25 mg BID [facility] Administration Chlordiazepoxide 25 mg 01/02/18 14:37 Librium PO Q8 PRN Agitation Enoxaparin Sodium 150 mg 01/02/18 22:00 01/03/18 21:24 Lovenox SC 150 mg Q12 [facility] Administration Famotidine 20 mg 01/02/18 18:00 01/03/18 17:40 Pepcid PO 20 mg BID [facility] Administration Folic Acid 1 mg 01/02/18 10:00 01/03/18 10:19 Folic Acid PO 1 mg DAILY [facility] Administration Furosemide 20 mg 01/02/18 18:00 01/03/18 17:39 Lasix IVP 20 mg BID [facility] Administration Lisinopril 10 mg 01/04/18 10:00 Zestril PO DAILY [facility] Rosuvastatin Calcium 10 mg 01/02/18 22:00 01/03/18 21:23 Crestor PO 10 mg HS [facility] Administration Thiamine HCl 100 mg 01/02/18 10:00 01/03/18 10:19 Vitamin B1 Tab PO 100 mg DAILY [facility] Administration Past Psychiatric History - Past Psychiatric History Previous Treatment History: None Pertinent Medical Hx (Current Medical&Sleep Prob, Allergies): Allergies Allergy/AdvReac Type Severity Reaction Status Date / Time No Known Allergies Allergy Unverified 01/02/18 03:28 Coumadin 5 mg PO DAILY 05/21/13 Digoxin 125 mcg PO DAILY 05/21/13 Furosemide [Lasix] 40 mg PO DAILY 02/25/15 Metoprolol Tartrate 50 mg PO DAILY 02/25/15 Review of Systems - Neurological Neurological: UNREMARKABLE - Psychiatric Psychiatric: Abnormal Sleep Pattern, Anxiety, Difficulty Concentrating. absent : Hallucinations, Homicidal Ideation, Paranoia, Suicidal Ideation Mental Status Examination - Personal Presentation Personal Presentation: Looks stated age - Affect Affect: Constricted - Motor Activity Motor Activity: Calm - Reliability in Providing Information Reliability in Providing Information: Good - Speech Speech: Organized - Mood Mood: Anxious - Formal Thought Process Formal Thought Process: No Impairment - Cognitive Functions Orientation: Person, Place, Situation, Time Sensorium: Alert Attention/Concentration: Attentive Estimate of Intelligence: Average Judgement: Intact, as evidence by: Insight regarding need for hospitalization Memory: Recent intact, as evidence by: Ability to recall events of the day, Remote intact, as evidenced by: Ability to recall historical events - Risk Risk: Withdrawal, Diminished functioning - Strength & Assets Inventory Strength & Assets Inventory: Cooperative - Limitations Limitations: Living alone DSM 5 DX - DSM 5 DSM 5 Diagnosis: Alcohol use d/o - severe r/o withdrawal Alcohol-induced anxiety d/o - Recommended/Plan of Treatment Treatment Recommendations and Plan of Treatment: No need for detox unless CIWA increases Naltrexone 50 mg after UDS (to check for opiates) Gabapentin for anxiety and alcohol wdw Support and psychoed Refer to [facility] in [place] 32 min
[2018-01-04] MEDS ORDERED: Naltrexone 25 MG TAB PO SCH (10:15)
[2018-01-04] MEDS: Enoxaparin 150 mg Syringe SC SCH ×2 (10:44→21:39)
[2018-01-04 11:36] LABS: BENZODIAZEPINES, UR NEGATIVE (NEGATIVE); OPIATES, UR NEGATIVE (NEGATIVE); PHENCYCLIDINE, UR NEGATIVE (NEGATIVE)
--- NOTE | 2018-01-04 11:36 | CARD ---
APPROVED REPORT Date of service: 01/02/2018 EXAM: Two-dimensional and M-mode echocardiogram with Doppler and color Doppler. Other Information Quality : Technically LimitedRhythm : INDICATION Dyspnea Atrial Fibrillation Chest Pain Congestive Heart Failure ALCOHOL ABUSED 2D DIMENSIONS IVSd1.9 (0.7-1.1cm)LVDd4.0 (3.9-5.9cm) LVOT Diameter2.4 (1.8-2.4cm)PWd1.9 (0.7-1.1cm) LVDs3.1 (2.5-4.0cm)FS (%) 22.3 % LVEF (%)45.5 (>50%) M-Mode DIMENSIONS Left Atrium (MM)5.15 (2.5-4.0cm)Aortic Root4.62 (2.2-3.7cm) Aortic Cusp Exc.2.43 (1.5-2.0cm) Mitral Valve MV E Tdrxmvsx66.7cm/sMV A Llmkgcnm86.6cm/sE/A ratio2.0 TDI E/Lateral E'0.0E/Medial E'0.0 Tricuspid Valve TR Peak [id number]/sTR Peak [id number] LEFT VENTRICLE The left ventricle is normal size. There is normal left ventricular wall thickness. The left ventricular function is normal. The left ventricular ejection fraction is within the normal range. There is normal LV segmental wall motion. RIGHT VENTRICLE The right ventricle is normal size. ATRIA The left atrium is moderately dilated. The right atrium size is normal. AORTIC VALVE The aortic valve is normal in structure. MITRAL VALVE The mitral valve is normal in structure. TRICUSPID VALVE There is mild tricuspid regurgitation. <Conclusion> Normal LV systolic function. Moderately dilated LA. Mild TR.
[2018-01-04 11:56] LABS: BARBITURATES, UR NEGATIVE (NEGATIVE)
--- NOTE | 2018-01-04 12:15 | CP.PCM.PN ---
Addendum entered and electronically signed by Jose Alicia DO 01/04/18 12:27 : Echo read: Normal LV systolic function, moderately dilated LA, mild TR Original Note: <Jose Alicia - Last Filed: 01/04/18 12:18> Subjective - Date & Time of Evaluation Date of Evaluation: 01/04/18 Time of Evaluation: 12:11 - Subjective Subjective: PGY-[address] Benoit Patient seen and examined at bedside. Patient feels like he is back to baseline for when he takes his medications. Patient expressed concern about remained admitted through the evening because he needs to be back at work tomorrow, I assured patient he would receive a work note. Patient denies having any shortness of breath or wheezing, denies any chest pains, palpitations , dizziness, headache, weakness. Patient slept well last night and is tolerating PO meals. Objective - Vital Signs/Intake and Output Vital Signs (last 24 hours): Temp Pulse Resp BP Pulse Ox 98.1 F 71 20 135/73 98 01/04/18 08:25 01/04/18 08:25 01/04/18 08:25 01/04/18 10:47 01/04/18 08:25 - Medications Medications: Current Medications Aspirin (Aspirin Chewable) 81 mg PO DAILY [facility] Last Admin: 01/04/18 10:43 Dose: 81 mg Carvedilol (Coreg) 25 mg PO BID [facility] Last Admin: 01/04/18 10:47 Dose: 25 mg Chlordiazepoxide (Librium) 25 mg PO Q8 PRN PRN Reason: Agitation Enoxaparin Sodium (Lovenox) 150 mg SC Q12 [facility] Last Admin: 01/04/18 10:44 Dose: 150 mg Famotidine (Pepcid) 20 mg PO BID [facility] Last Admin: 01/04/18 10:43 Dose: 20 mg Folic Acid (Folic Acid) 1 mg PO DAILY [facility] Last Admin: 01/04/18 10:43 Dose: 1 mg Furosemide (Lasix) 20 mg IVP BID [facility] Last Admin: 01/04/18 10:44 Dose: 20 mg Gabapentin (Neurontin) 300 mg PO BID [facility] Last Admin: 01/04/18 10:44 Dose: 300 mg Lisinopril (Zestril) 10 mg PO DAILY [facility] Last Admin: 01/04/18 10:43 Dose: 10 mg Rosuvastatin Calcium (Crestor) 10 mg PO HS [facility] Last Admin: 01/03/18 21:23 Dose: 10 mg Thiamine HCl (Vitamin B1 Tab) 100 mg PO DAILY [facility] Last Admin: 01/04/18 10:43 Dose: 100 mg Warfarin Sodium (Coumadin) 5 mg PO 1800 [facility] Stop: 01/04/18 18:01 Warfarin Sodium (Coumadin) 2.5 mg PO 1800 [facility] Stop: 01/04/18 18:01 - Labs Labs: 01/04/18 07:50 01/04/18 07:50 PT 13.1 SECONDS (9.7-12.2) H 01/04/18 07:50 INR 1.2 01/04/18 07:50 APTT 35 SECONDS (21-34) H 01/02/18 03:47 - Head Exam Head Exam: ATRAUMATIC, NORMAL INSPECTION - Eye Exam Eye Exam: EOMI, Normal appearance Pupil Exam: NORMAL ACCOMODATION, PERRL - ENT Exam ENT Exam: Mucous Membranes Moist - Neck Exam Neck Exam: Full ROM, Normal Inspection - Respiratory Exam Respiratory Exam: Wheezes. absent: Accessory Muscle Use, Decreased Breath Sounds, Rales, Rhonchi, Respiratory Distress Additional comments: +mild diffuse wheezes - Cardiovascular Exam Cardiovascular Exam: REGULAR RHYTHM, +S1, +S2. absent: Clicks, Murmur - GI/Abdominal Exam GI & Abdominal Exam: Soft, Hernia, Normal Bowel Sounds. absent: Distended, Firm , Guarding, Tenderness - Extremities Exam Extremities Exam: Full ROM, Normal Capillary Refill, Pedal Edema. absent: Tenderness - Neurological Exam Neurological Exam: Alert, Awake, CN II-XII Intact, Normal Gait, Oriented x3. absent: Abnormal Gait, Altered, Motor Sensory Deficit - Psychiatric Exam Psychiatric exam: Normal Affect, Normal Mood - Skin Skin Exam: Dry, Mottled (+chronic skin changes on legs b/l), Warm Assessment and Plan - Assessment and Plan (Free Text) Assessment: Assessment: 1)A Fib with RVR * CBC w dif * CMP * BMP 712 * Coags - INR 1.1 * Mag * TSH * EKG - AFib RVR * Echo - read pending * Cardio consulted - Dr. Moe - help appreciate * Restart home meds * Warfarin 5mg po daily * Protonix 40 mg po daily * Lipitor 40 po daily * Coreg 25 mg po dialy * Lasix 20 po daily * lisinopril 20 po daily * Folic acid 4 mg daily * Patient cleared for discharge by cardiology service pending therapeutic INR. INR today 1.2 from 1.1 yesterday. 2) CHF * CBC w dif * CMP * BMP 712 * Coags - INR 1.1 * Mag * TSH * EKG - AFib RVR * Echo - read pending * Cardio consulted - Dr. Moe - help appreciated * Pt's Burr Grinder is Dr. Diaz, who has been notified of this patient; help appreciated * Restart home meds * Warfarin 5mg po daily --> daily dose increased yesterday to 7.5 mg daily * Protonix 40 mg po daily * Lipitor 40 po daily * Coreg 25 mg po dialy * Lasix 20 po daily * lisinopril 20 po daily * Folic acid 4 mg daily * Thiamine 100 mg daily * Heart healthy diet * Meds: * Asa 81 daily * Crestor 10 po HS * Patient cleared for discharge by cardiology service pending therapeutic INR. INR today 1.2 from 1.1 yesterday. 3) COPD, 24 pack-year smoker * CBC w dif * CMP * BMP 712 * Coags - INR 1.1 * Mag * TSH * Restart home meds * Warfarin 5mg po daily --> daily dose increased yesterday to 7.5 mg daily * Protonix 40 mg po daily * Lipitor 40 po daily * Coreg 25 mg po dialy * Lasix 20 po daily * lisinopril 20 po daily * Folic acid 4 mg daily * Thiamine 100 mg daily * Continue to encourage smoking cessation 4) Obesity * Heart healthy diet 5) Alcohol Abuse * Psych consulted (Dr. Bob) per patient request and patient would like help with his alcohol abuse problem --> help appreciated 6) Prophylaxis * DVT: Lovenox 150 SC q12 * GI: Famotidine 20mg PO BID Assessment/plan discussed with Dr. Kaycee Alicia, PGY-1 <Sina Benoit - Last Filed: 01/04/18 14:03> Objective - Vital Signs/Intake and Output Vital Signs (last 24 hours): Temp Pulse Resp BP Pulse Ox 98.1 F 71 20 135/73 98 01/04/18 08:25 01/04/18 08:25 01/04/18 08:25 01/04/18 10:47 01/04/18 08:25 - Medications Medications: Current Medications Aspirin (Aspirin Chewable) 81 mg PO DAILY [facility] Last Admin: 01/04/18 10:43 Dose: 81 mg Carvedilol (Coreg) 25 mg PO BID [facility] Last Admin: 01/04/18 10:47 Dose: 25 mg Chlordiazepoxide (Librium) 25 mg PO Q8 PRN PRN Reason: Agitation Enoxaparin Sodium (Lovenox) 150 mg SC Q12 [facility] Last Admin: 01/04/18 10:44 Dose: 150 mg Famotidine (Pepcid) 20 mg PO BID [facility] Last Admin: 01/04/18 10:43 Dose: 20 mg Folic Acid (Folic Acid) 1 mg PO DAILY [facility] Last Admin: 01/04/18 10:43 Dose: 1 mg Furosemide (Lasix) 20 mg IVP BID [facility] Last Admin: 01/04/18 10:44 Dose: 20 mg Gabapentin (Neurontin) 300 mg PO BID [facility] Last Admin: 01/04/18 10:44 Dose: 300 mg Lisinopril (Zestril) 10 mg PO DAILY [facility] Last Admin: 01/04/18 10:43 Dose: 10 mg Rosuvastatin Calcium (Crestor) 10 mg PO HS [facility] Last Admin: 01/03/18 21:23 Dose: 10 mg Thiamine HCl (Vitamin B1 Tab) 100 mg PO DAILY [facility] Last Admin: 01/04/18 10:43 Dose: 100 mg Warfarin Sodium (Coumadin) 5 mg PO 1800 [facility] Stop: 01/04/18 18:01 Warfarin Sodium (Coumadin) 2.5 mg PO 1800 [facility] Stop: 01/04/18 18:01 - Labs Labs: 01/04/18 07:50 01/04/18 07:50 PT 13.1 SECONDS (9.7-12.2) H 01/04/18 07:50 INR 1.2 01/04/18 07:50 APTT 35 SECONDS (21-34) H 01/02/18 03:47 Attending/Attestation - Attestation I have personally seen and examined this patient.: Yes I have fully participated in the care of the patient.: Yes I have reviewed all pertinent clinical information, including history, physical exam and plan: Yes Notes (Text): 01/04/18 14:00 Medical attending: Patient was seen and examined by me. Agree with the above note by the resident Patient was not in any acute distress when I came and saw the patient. INR was still sub theraputic. He explains that he has not been taking his medications for sometime now. He has been evaluated by cardiology. His breathing has improved and there is less pedal edema than before. The patient explained he was eager to leave as he has work tommorow. He said he was undecided with reguards on weather to stay or not Sina Benoit
--- NOTE | 2018-01-04 21:23 | CP.PCM.PN ---
Subjective - Date & Time of Evaluation Date of Evaluation: 01/04/18 Time of Evaluation: 21:22 Objective - Vital Signs/Intake and Output Vital Signs (last 24 hours): Temp Pulse Resp BP Pulse Ox 97.8 F 81 20 133/84 99 01/04/18 15:32 01/04/18 16:00 01/04/18 15:32 01/04/18 17:37 01/04/18 15:32 - Medications Medications: Current Medications Aspirin (Aspirin Chewable) [address] [facility] Last Admin: 01/04/18 10:43 Dose: 81 mg Carvedilol (Coreg) [address] [facility] Last Admin: 01/04/18 17:37 Dose: 25 mg Chlordiazepoxide (Librium) 25 mg PO Q8 PRN PRN Reason: Agitation Enoxaparin Sodium (Lovenox) [address] [facility] Last Admin: 01/04/18 10:44 Dose: 150 mg Famotidine (Pepcid) [address] [facility] Last Admin: 01/04/18 17:43 Dose: 20 mg Folic Acid (Folic Acid) [address] [facility] Last Admin: 01/04/18 10:43 Dose: 1 mg Furosemide (Lasix) [address] [facility] Last Admin: 01/04/18 17:36 Dose: 20 mg Gabapentin (Neurontin) [address] [facility] Last Admin: 01/04/18 17:36 Dose: 300 mg Lisinopril (Zestril) [address] [facility] Last Admin: 01/04/18 10:43 Dose: 10 mg Rosuvastatin Calcium (Crestor) [address] [facility] Last Admin: 01/03/18 21:23 Dose: 10 mg Thiamine HCl (Vitamin B1 Tab) [address] [facility] Last Admin: 01/04/18 10:43 Dose: 100 mg - Labs Labs: 01/04/18 07:50 01/04/18 07:50 PT 13.1 SECONDS (9.7-12.2) H 01/04/18 07:50 INR 1.2 01/04/18 07:50 APTT 35 SECONDS (21-34) H 01/02/18 03:47
[2018-01-05 07:34] LABS: BASO # 0.1 K/uL (0.0-0.2); EOS # 0.2 K/uL (0.0-0.7); EOS % 3.4 % (0.0-4.0); HEMOGLOBIN 16.4 g/dL (12.0-18.0); LYMPH # 1.5 K/uL (1.0-4.3); LYMPH % 29.8 % (20.0-40.0); MEAN CELL VOLUME 96.1 fL (80.0-94.0); MEAN CORPUSCULAR HEMOGLOBIN 33.4 pg (27.0-31.0); MEAN CORPUSCULAR HGB CONC 34.7 g/dL (33.0-37.0); MEAN PLATELET VOLUME 8.5 fL (7.2-11.7); MONO # 0.7 K/uL (0.0-0.8); MONO % 13.1 % (0.0-10.0); NEUT # 2.7 K/uL (1.8-7.0); NEUT % 52.7 % (50.0-75.0); NRBC % 0.2 % (0.0-2.0); RBC 4.9 Mil/uL (4.40-5.90); WHITE BLOOD COUNT 5.2 K/uL (4.8-10.8)
[2018-01-05 07:40] LABS: INR 1.3; PROTHROMBIN TIME 14.5 SECONDS (9.7-12.2)
[2018-01-05 08:04] LABS: ALB/GLOB RATIO 1.4 (1.0-2.1); ALBUMIN 4.1 g/dL (3.5-5.0); ALT/SGPT 31 U/L (21-72); AST/SGOT 32 U/L (17-59); BLOOD UREA NITROGEN 22 mg/dL (9-20); GFR NON-AFRICAN AMERICAN > 60
[2018-01-05] MEDS: Enoxaparin 150 mg Syringe SC SCH (09:15)
[2018-01-05] MEDS ORDERED: Naltrexone 25 MG TAB PO SCH (10:00)
--- NOTE | 2018-01-05 14:53 | CP.PCM.PN ---
Subjective - Date & Time of Evaluation Date of Evaluation: 01/05/18 Time of Evaluation: 14:49 - Subjective Subjective: The pt feels better. Breathing well. Echo reviewed by me: off axis views, ef appears more like 35-40%, not 20%. pt was non compliant with meds. Objective - Vital Signs/Intake and Output Vital Signs (last 24 hours): Temp Pulse Resp BP Pulse Ox 97.4 F L 78 20 140/92 H 98 01/05/18 07:00 01/05/18 07:00 01/05/18 07:00 01/05/18 09:15 01/05/18 07:00 - Medications Medications: Current Medications Apixaban (Eliquis) 5 mg PO BID [facility] Carvedilol (Coreg) 25 mg PO BID [facility] Last Admin: 01/05/18 09:15 Dose: 25 mg Chlordiazepoxide (Librium) 25 mg PO Q8 PRN PRN Reason: Agitation Famotidine (Pepcid) 20 mg PO BID [facility] Last Admin: 01/05/18 09:15 Dose: 20 mg Folic Acid (Folic Acid) 1 mg PO DAILY [facility] Last Admin: 01/05/18 09:15 Dose: 1 mg Furosemide (Lasix) 40 mg PO DAILY [facility] Gabapentin (Neurontin) 300 mg PO BID [facility] Last Admin: 01/05/18 09:15 Dose: 300 mg Lisinopril (Zestril) 20 mg PO DAILY [facility] Naltrexone HCl (Revia) 50 mg PO DAILY [facility] Spironolactone (Aldactone) 25 mg PO DAILY [facility] Thiamine HCl (Vitamin B1 Tab) 100 mg PO DAILY [facility] Last Admin: 01/04/18 10:43 Dose: 100 mg Trazodone HCl (Desyrel) 50 mg PO HS [facility] Last Admin: 01/04/18 21:40 Dose: 50 mg - Labs Labs: 01/05/18 07:09 01/05/18 07:09 PT 14.5 SECONDS (9.7-12.2) H 01/05/18 07:09 INR 1.3 01/05/18 07:09 APTT 35 SECONDS (21-34) H 01/02/18 03:47 - Constitutional Appears: Well - Head Exam Head Exam: NORMAL INSPECTION - Eye Exam Eye Exam: EOMI - ENT Exam ENT Exam: Mucous Membranes Moist - Respiratory Exam Respiratory Exam: Clear to Ausculation Bilateral - Cardiovascular Exam Cardiovascular Exam: Irregular Rhythm - GI/Abdominal Exam GI & Abdominal Exam: Normal Bowel Sounds - Rectal Exam Rectal Exam: NORMAL INSPECTION - Exam External exam: NORMAL EXTERNAL EXAM - Extremities Exam Extremities Exam: Normal Inspection - Neurological Exam Neurological Exam: Alert, Awake, Normal Gait, Oriented x3 - Psychiatric Exam Psychiatric exam: Normal Affect - Skin Skin Exam: Normal Color Assessment and Plan - Assessment and Plan (Free Text) Assessment: 1. pt advised that alcohol is toxic to the heart and can lead to a weaker heart. 2. pt offered cardioversion, but refused. 3. EF appears moderately reduced, not severe 4. Stop asa: pt had a cath with normal coronaries 5. pt had been prescribed eliquis but did not grain picker prescription. Will re order 6. Add aldactone 25 a day. 7. Afib rate is ok. on coreg 8. Increase lisinopril to 20 a day. 9. pt advised that with continued ETOH and non compliance, his chf, will likely become worse, nore hospitalizations, and even possible eventual need for ICD. Also, stroke risk without anticoagulation. 10. Stop crestor; pt is non compliant, wish to reduce pill count, also pt has normal coronary arteries.
[2018-01-05 15:40] VITALS: BP 121/70; TEMP 96; O2SAT 100
[2018-01-05 16:01] VITALS: PULSE 74
--- NOTE | 2018-01-05 17:43 | CP.PCM.DIS ---
<GarcíaHeath M - Last Filed: 01/05/18 19:35> Provider - Provider Date of Admission: 01/02/18 07:36 Attending physician: Sina Benoit DO Consults: Dr. Diaz, Dr. Bob, Time Spent in preparation of Discharge (in minutes): 45 Diagnosis - Discharge Diagnosis (1) CHF exacerbation Status: Acute Comment: Patient started on home meds, improved symptoms. Hospital Course - Lab Results Lab Results: Most Recent Lab Values WBC 5.2 K/uL (4.8-10.8) 01/05/18 07:09 RBC 4.90 Mil/uL (4.40-5.90) 01/05/18 07:09 Hgb 16.4 g/dL (12.0-18.0) 01/05/18 07:09 Hct 47.1 % (35.0-51.0) 01/05/18 07:09 MCV 96.1 fL (80.0-94.0) H 01/05/18 07:09 MCH 33.4 pg (27.0-31.0) H 01/05/18 07:09 MCHC 34.7 g/dL (33.0-37.0) 01/05/18 07:09 RDW 15.0 % (11.5-14.5) H 01/05/18 07:09 Plt Count 199 K/uL (130-400) 01/05/18 07:09 MPV 8.5 fL (7.2-11.7) 01/05/18 07:09 Neut % (Auto) 52.7 % (50.0-75.0) 01/05/18 07:09 Lymph % (Auto) 29.8 % (20.0-40.0) 01/05/18 07:09 Roberts % (Auto) 13.1 % (0.0-10.0) H 01/05/18 07:09 Eos % (Auto) 3.4 % (0.0-4.0) 01/05/18 07:09 Baso % (Auto) 1.0 % (0.0-2.0) 01/05/18 07:09 Neut # (Auto) 2.7 K/uL (1.8-7.0) 01/05/18 07:09 Lymph # (Auto) 1.5 K/uL (1.0-4.3) 01/05/18 07:09 Roberts # (Auto) 0.7 K/uL (0.0-0.8) 01/05/18 07:09 Eos # (Auto) 0.2 K/uL (0.0-0.7) 01/05/18 07:09 Baso # (Auto) 0.1 K/uL (0.0-0.2) 01/05/18 07:09 PT 14.5 SECONDS (9.7-12.2) H 01/05/18 07:09 INR 1.3 01/05/18 07:09 APTT 35 SECONDS (21-34) H 01/02/18 03:47 Sodium 141 mmol/L (132-148) 01/05/18 07:09 Potassium 3.8 mmol/L (3.6-5.2) 01/05/18 07:09 Chloride 105 mmol/L (98-107) 01/05/18 07:09 Carbon Dioxide 28 mmol/L (22-30) 01/05/18 07:09 Anion Gap 12 (10-20) 01/05/18 07:09 BUN 22 mg/dL (9-20) H 01/05/18 07:09 Creatinine 1.0 mg/dL (0.8-1.5) 01/05/18 07:09 Est GFR ( Amer) > 60 01/05/18 07:09 Est GFR (Non-Af Amer) > 60 01/05/18 07:09 Random Glucose 99 mg/dL (75-110) 01/05/18 07:09 Calcium 9.0 mg/dl (8.6-10.4) 01/05/18 07:09 Magnesium 2.1 mg/dL (1.6-2.3) 01/05/18 07:09 Total Bilirubin 1.1 mg/dL (0.2-1.3) 01/05/18 07:09 AST 32 U/L (17-59) 01/05/18 07:09 ALT 31 U/L (21-72) 01/05/18 07:09 Alkaline Phosphatase 57 U/L (38-126) 01/05/18 07:09 Troponin I < 0.0120 ng/mL (0.00-0.120) 01/02/18 03:47 NT-Pro-B Natriuret Pep 712 pg/mL (0-450) H 01/02/18 03:47 Total Protein 7.0 g/dL (6.3-8.3) 01/05/18 07:09 Albumin 4.1 g/dL (3.5-5.0) 01/05/18 07:09 Globulin 2.9 gm/dL (2.2-3.9) 01/05/18 07:09 Albumin/Globulin Ratio 1.4 (1.0-2.1) 01/05/18 07:09 TSH 3rd Generation 0.56 mIU/L (0.46-4.68) 01/02/18 04:20 Digoxin < 0.4 ng/mL (0.8-2.0) L 01/02/18 03:47 Urine Opiates Screen Negative (NEGATIVE) 01/04/18 10:48 Urine Methadone Screen Negative (NEGATIVE) 01/04/18 10:48 Ur Barbiturates Screen Negative (NEGATIVE) 01/04/18 10:48 Ur Phencyclidine Scrn Negative (NEGATIVE) 01/04/18 10:48 Ur Amphetamines Screen Negative (NEGATIVE) 01/04/18 10:48 U Benzodiazepines Scrn Negative (NEGATIVE) 01/04/18 10:48 U Oth Cocaine Metabols Negative (NEGATIVE) 01/04/18 10:48 U Cannabinoids Screen Negative (NEGATIVE) 01/04/18 10:48 Alcohol, Quantitative 263 mg/dl (0-10) H 01/02/18 04:20 - Hospital Course Hospital Course: Patient is a 42 year old male with PMHx CHF, COPD, Afib w/ RVR, alcohol absuse, obesity, medication noncompliance who presents with acute shortness of breath. Patient states that for about the last two days he has becoming increasingly short of breath. Patient states he was drinking last night from 4pm-12am and when he woke up he was having difficulty breathing worse. He has been hospitalized in the past for similar complaints. Pt states his shortness of breath is worse when lying down. Patient states that he takes his medications every day as prescribed, however when I called the pharmacy, they told me he last filled his prescriptions in September and has been long overdue for refills. Patient states he drinks beer 2-3 times/week and has a 20+ pack-year history (1 pack/day). Patient denies dizziness, headache, chest pain, palpitations. Patient admitted for shortness of breath. Patients home medications were resumed including lasix and patient symptoms improved. Patient stated he was feeling fine and wanted to be discharged but patient had been noncompliant with his medications and was not taking anything for several months. Patient was being bridged to warfarin. Upon cardiology recommendations, patient was switched to eliquis. Patient was discharged with medications listed below. Above is only a summary of patient stay in the hospital, see EMR for full details. Below are the instructions the patient was discharged with: Patient is stable for discharge per Dr. Benoit. Patient should fill and start start taking the following medications: Eliquis 5mg two times a day Carvedilol 25 mg two times a day Furosemide 40 mg one time a day Lisinopril 20 mg one time a day Aldactone 25mg one time a day Patient should follow up with his primary doctor in about 1 to 2 week. patient should follow up with Dr. Diaz (elementary school teacher's aide) in about 1 week. If symptoms worsen or do not improve, please return to nearest emergency emergency facility. Please take care. Discharge Exam - Head Exam Head Exam: NORMAL INSPECTION - Eye Exam Eye Exam: EOMI, Normal appearance Pupil Exam: NORMAL ACCOMODATION - ENT Exam ENT Exam: Mucous Membranes Moist - Respiratory Exam Respiratory Exam: NORMAL BREATHING PATTERN, UNREMARKABLE. absent: Rales, Rhonchi, Wheezes - Cardiovascular Exam Cardiovascular Exam: Irregular Rhythm, +S1, +S2. absent: Systolic Murmur - Extremities Exam Additional comments: Lower extremity edema, with varicose veins, discoloration suggestive of venous insufficiency, pulses intact, no tenderness on calf palpation - Neurological Exam Neurological exam: Alert, Normal Gait, Oriented x3 - Psychiatric Exam Psychiatric exam: Normal Affect, Normal Mood - Skin Skin Exam: Dry, Normal Color, Warm Discharge Plan - Discharge Medications Prescriptions: Apixaban [Eliquis] 5 mg PO BID #60 tab Carvedilol [Coreg] 25 mg PO BID #60 tab Furosemide [Lasix] 40 mg PO DAILY #30 tab Lisinopril [Zestril] 20 mg PO DAILY #30 tab Spironolactone [Aldactone] 25 mg PO DAILY #30 tab - Follow Up Plan Condition: STABLE Disposition: HOME/ ROUTINE Additional Instructions: Patient is stable for discharge per Dr. Benoit. Patient should fill and start start taking the following medications: Eliquis 5mg two times a day Carvedilol 25 mg two times a day Furosemide 40 mg one time a day Lisinopril 20 mg one time a day Aldactone 25mg one time a day Patient should follow up with his primary doctor in about 1 to 2 week. patient should follow up with Dr. Diaz (elementary school teacher's aide) in about 1 week. If symptoms worsen or do not improve, please return to nearest emergency emergency facility. Please take care. Referrals: Christopher Diaz MD [Staff Provider] - Clinical Quality Measures - CQM - Heart Failure Ejection Fraction: 40 % or Greater Left Ventricular Function to be assessed after discharge: No IAN Inhibitor Prescribed: Yes Beta-Jacobo Prescribed: Carvedilol Angiotensin II Receptor Jacobo Prescribed: No Contraindication/Reason for not providing: ACEi prescribed AnticoagulationTherapy for Atrial Fibrillation/Atrialflutter: Yes Aldosterone Antagonist Prescribed: Yes Hydralazine Nitrate Prescribed: No Contraindication/Reason for not providing: not indicated Implantable Cardioverter Defibrillator Therapy: No Contraindication/Reason for not providing: not indicated Follow Up Date (must be within 7 days from discharge): 01/12/18 Follow Up Time: 09:00 <Sina Benoit - Last Filed: 01/06/18 08:04> Provider - Provider Date of Admission: 01/02/18 07:36 Attending physician: Sina Benoit, DO Hospital Course - Lab Results Lab Results: Most Recent Lab Values WBC 5.2 K/uL (4.8-10.8) 01/05/18 07:09 RBC 4.90 Mil/uL (4.40-5.90) 01/05/18 07:09 Hgb 16.4 g/dL (12.0-18.0) 01/05/18 07:09 Hct 47.1 % (35.0-51.0) 01/05/18 07:09 MCV 96.1 fL (80.0-94.0) H 01/05/18 07:09 MCH 33.4 pg (27.0-31.0) H 01/05/18 07:09 MCHC 34.7 g/dL (33.0-37.0) 01/05/18 07:09 RDW 15.0 % (11.5-14.5) H 01/05/18 07:09 Plt Count 199 K/uL (130-400) 01/05/18 07:09 MPV 8.5 fL (7.2-11.7) 01/05/18 07:09 Neut % (Auto) 52.7 % (50.0-75.0) 01/05/18 07:09 Lymph % (Auto) 29.8 % (20.0-40.0) 01/05/18 07:09 Roberts % (Auto) 13.1 % (0.0-10.0) H 01/05/18 07:09 Eos % (Auto) 3.4 % (0.0-4.0) 01/05/18 07:09 Baso % (Auto) 1.0 % (0.0-2.0) 01/05/18 07:09 Neut # (Auto) 2.7 K/uL (1.8-7.0) 01/05/18 07:09 Lymph # (Auto) 1.5 K/uL (1.0-4.3) 01/05/18 07:09 Roberts # (Auto) 0.7 K/uL (0.0-0.8) 01/05/18 07:09 Eos # (Auto) 0.2 K/uL (0.0-0.7) 01/05/18 07:09 Baso # (Auto) 0.1 K/uL (0.0-0.2) 01/05/18 07:09 PT 14.5 SECONDS (9.7-12.2) H 01/05/18 07:09 INR 1.3 01/05/18 07:09 APTT 35 SECONDS (21-34) H 01/02/18 03:47 Sodium 141 mmol/L (132-148) 01/05/18 07:09 Potassium 3.8 mmol/L (3.6-5.2) 01/05/18 07:09 Chloride 105 mmol/L (98-107) 01/05/18 07:09 Carbon Dioxide 28 mmol/L (22-30) 01/05/18 07:09 Anion Gap 12 (10-20) 01/05/18 07:09 BUN 22 mg/dL (9-20) H 01/05/18 07:09 Creatinine 1.0 mg/dL (0.8-1.5) 01/05/18 07:09 Est GFR ( Amer) > 60 01/05/18 07:09 Est GFR (Non-Af Amer) > 60 01/05/18 07:09 Random Glucose 99 mg/dL (75-110) 01/05/18 07:09 Calcium 9.0 mg/dl (8.6-10.4) 01/05/18 07:09 Magnesium 2.1 mg/dL (1.6-2.3) 01/05/18 07:09 Total Bilirubin 1.1 mg/dL (0.2-1.3) 01/05/18 07:09 AST 32 U/L (17-59) 01/05/18 07:09 ALT 31 U/L (21-72) 01/05/18 07:09 Alkaline Phosphatase 57 U/L (38-126) 01/05/18 07:09 Troponin I < 0.0120 ng/mL (0.00-0.120) 01/02/18 03:47 NT-Pro-B Natriuret Pep 712 pg/mL (0-450) H 01/02/18 03:47 Total Protein 7.0 g/dL (6.3-8.3) 01/05/18 07:09 Albumin 4.1 g/dL (3.5-5.0) 01/05/18 07:09 Globulin 2.9 gm/dL (2.2-3.9) 01/05/18 07:09 Albumin/Globulin Ratio 1.4 (1.0-2.1) 01/05/18 07:09 TSH 3rd Generation 0.56 mIU/L (0.46-4.68) 01/02/18 04:20 Digoxin < 0.4 ng/mL (0.8-2.0) L 01/02/18 03:47 Urine Opiates Screen Negative (NEGATIVE) 01/04/18 10:48 Urine Methadone Screen Negative (NEGATIVE) 01/04/18 10:48 Ur Barbiturates Screen Negative (NEGATIVE) 01/04/18 10:48 Ur Phencyclidine Scrn Negative (NEGATIVE) 01/04/18 10:48 Ur Amphetamines Screen Negative (NEGATIVE) 01/04/18 10:48 U Benzodiazepines Scrn Negative (NEGATIVE) 01/04/18 10:48 U Oth Cocaine Metabols Negative (NEGATIVE) 01/04/18 10:48 U Cannabinoids Screen Negative (NEGATIVE) 01/04/18 10:48 Alcohol, Quantitative 263 mg/dl (0-10) H 01/02/18 04:20 Attending/Attestation - Attestation I have personally seen and examined this patient.: Yes I have fully participated in the care of the patient.: Yes I have reviewed all pertinent clinical information, including history, physical exam and plan: Yes Notes (Text): 01/06/18 08:01 Medical attending: Patient was seen and examined by me. Agree with the above note by the resident The patient was not in any acute distress when we saw him. He was eager to leave later. Cardiology gave the ok to change his anticogulation over to Eliquis BID I told the patient that I hope he sees the importance of taking his medication for atrial fibrillation as well as for CHF. As mentioned previously he was not compliant with his medications and also came to the hospital intoxicated over the weekend. We encouraged the patient to please follow up with his elementary school teacher's aide as well as PMD thank you Sina Benoit
== END 2018-01-05 17:40 | disposition home or self-care (01) | DRG 292 ==
LOC: C.ER 03:17 → C.9E 07:36 → C.6T 08:10
PROVIDERS: ADMIT Hospitalist; ATTEND Hospitalist
DX: I11.0 Hypertensive heart disease with heart failure (principal); I50.23 Acute on chronic systolic (congestive) heart failure; I48.1 Persistent atrial fibrillation; F10.180 Alcohol abuse with alcohol-induced anxiety disorder; J44.9 Chronic obstructive pulmonary disease, unspecified; Z68.41 Body mass index [BMI] 40.0-44.9, adult; E66.9 Obesity, unspecified; F17.210 Nicotine dependence, cigarettes, uncomplicated; Z91.14 Patient's other noncompliance with medication regimen; Z79.01 Long term (current) use of anticoagulants; Z79.82 Long term (current) use of aspirin; Z86.73 Personal history of transient ischemic attack (TIA), and cerebral infarction without residual deficits

== ENCOUNTER 2018-03-01 06:48 | Emergency (ER) | payer BC ==
[2018-03-01 06:49] VITALS: PULSE 105
[2018-03-01 06:55] VITALS: RESP 18
[2018-03-01 07:21] LABS: INR 1.1; PROTHROMBIN TIME 12.3 SECONDS (9.7-12.2)
[2018-03-01 07:22] LABS: BASO # 0.1 K/uL (0.0-0.2); BASO % 1.2 % (0.0-2.0); EOS # 0.1 K/uL (0.0-0.7); HEMOGLOBIN 15.6 g/dL (12.0-18.0); LYMPH # 1.4 K/uL (1.0-4.3); LYMPH % 21.2 % (20.0-40.0); MEAN CELL VOLUME 94.7 fL (80.0-94.0); MEAN CORPUSCULAR HEMOGLOBIN 32.2 pg (27.0-31.0); MEAN PLATELET VOLUME 8.7 fL (7.2-11.7); MONO % 15.9 % (0.0-10.0); NEUT # 3.9 K/uL (1.8-7.0); NEUT % 59.7 % (50.0-75.0); NRBC % 0.1 % (0.0-2.0); RBC 4.84 Mil/uL (4.40-5.90); RED CELL DISTRIBUTION WIDTH 13.9 % (11.5-14.5); WHITE BLOOD COUNT 6.5 K/uL (4.8-10.8)
[2018-03-01 07:28] LABS: ALB/GLOB RATIO 1.3 (1.0-2.1); ALBUMIN 4.2 g/dL (3.5-5.0); CALCIUM 8.9 mg/dl (8.6-10.4)
--- NOTE | 2018-03-01 08:37 | C.PDOC ---
History Of Present Illness 43 y/o male with history of CHF presents to ED with c/o varicose vein on left leg began bleeding [employer]. Patient states vein was bleeding for 20 minutes and at ED pressure dressing applied. Patient is on Eliquis for CHF and currently denies chest pain, sob, change in sensation, fever, chills or any other complaints at this time. Time Seen by Provider: 03/01/18 07:06 Chief Complaint (Nursing): Lower Extremity Problem/Injury History Per: Patient History/Exam Limitations: no limitations Onset/Duration Of Symptoms: Hrs Current Symptoms Are (Timing): Still Present Past Medical History Reviewed: Historical Data, Nursing Documentation, Vital Signs Vital Signs: Last Vital Signs Temp 97.3 F L 03/01/18 06:51 Pulse 94 H 03/01/18 06:51 Resp 18 03/01/18 06:51 BP 113/78 03/01/18 06:51 Pulse Ox 96 03/01/18 06:51 - Medical History PMH: Atrial Fibrillation, Cardia Arrhythmia, CHF, HTN, Hypercholesterolemia, TIA Surgical History: Appendectomy Family History: States: No Known Family Hx - Social History Hx Tobacco Use: Yes Hx Alcohol Use: Yes Hx Substance Use: No - Immunization History Hx Tetanus Toxoid Vaccination: No Hx Influenza Vaccination: No Hx Pneumococcal Vaccination: No Review Of Systems Constitutional: Negative for: Fever, Chills Cardiovascular: Negative for: Chest Pain Respiratory: Negative for: Shortness of Breath Musculoskeletal: Positive for: Leg Pain Skin: Negative for: Rash Neurological: Negative for: Weakness, Numbness Physical Exam - Physical Exam Appears: Non-toxic, No Acute Distress, Other (Morbidly obese) Skin: Warm, Dry Head: Atraumatic, Normacephalic Eye(s): bilateral: Normal Inspection Oral Mucosa: Moist Neck: Normal ROM, Supple Cardiovascular: Rhythm Regular Respiratory: Normal Breath Sounds, No Rales, No Rhonchi, No Wheezing Gastrointestinal/Abdominal: Soft, No Tenderness, No Guarding, No Rebound Extremity: No Calf Tenderness, Capillary Refill (<2 seconds), No Deformity, Other (chronic venous stasis changes to lower extremities bilaterally. Left lower leg bandafe intact and dry) Pulses: Left Dorsalis Pedis: Normal Neurological/Psych: Oriented x3, Normal Speech, Normal Motor, Normal Sensation ED Course And Treatment - Laboratory Results Result Diagrams: 03/01/18 07:06 03/01/18 07:06 O2 Sat by Pulse Oximetry: 96 (RA) Pulse Ox Interpretation: Normal Progress Note: Patient observed at ED, no further bleeding. Patient discharged with follow up to PMD for tomorrow, patient instructed to keep bandage on and continue Eliquis. Disposition - Disposition Referrals: Christopher Diaz MD [Staff Provider] - Disposition: HOME/ ROUTINE Disposition Time: 09:50 Condition: IMPROVED Additional Instructions: ESTELA LIMA, thank you for letting us take care of you today. The emergency medical care you received today was directed at your acute symptoms. If you were prescribed any medication, please fill it and take as directed. It may take several days for your symptoms to resolve. Return to the Emergency Department if your symptoms worsen, do not improve, or if you have any other problems. Please contact your doctor or call one of the physicians/clinics you have been referred to that are listed on the Patient Visit Information form that is included in your discharge packet. Bring any paperwork you were given at discharge with you along with any medications you are taking to your follow up visit. Our treatment cannot replace ongoing medical care by a primary care provider outside of the emergency department. Thank you for allowing the [facility] team to be part of your care today. Keep the leg bandage on. Follow up with your primary care doctor tomorrow for re-evaluation and further management. Instructions: Varicose Veins (DC) Forms: [employer] (Korean) - Clinical Impression Clinical Impression: Varicose veins of both lower extremities - Scribe Statement The provider has reviewed the documentation as recorded by the Mirza Singh All medical record entries made by the Elenitaibconnie were at my direction and personally dictated by me. I have reviewed the chart and agree that the record accurately reflects my personal performance of the history, physical exam, medical decision making, and the department course for this patient. I have also personally directed, reviewed, and agree with the discharge instructions and disposition.
[2018-03-01 10:16] VITALS: BP 102/63; PULSE 85; TEMP 98.2
[2018-03-01 11:43] VITALS: O2SAT 96
== END 2018-03-01 10:27 | disposition home or self-care (01) ==
LOC: C.ER 06:48
DX: I83.93 Asymptomatic varicose veins of bilateral lower extremities (principal)

== ENCOUNTER 2018-08-07 00:05 | Inpatient (IN) | payer BC ==
[2018-08-07 00:05] VITALS: PULSE 105
--- NOTE | 2018-08-07 01:05 | C.PDOC ---
History Of Present Illness 43 year old male with PMHx of CHF, AFiv presents to the ED c/o SOB for the past 2 days. Patient reports SOB worsens with climbing stairs and laying down flat. Patient states in the past he was prescribed Digoxin, Coumadin, Lopressor is not taking them at this moment because "I am lazy". Patient denies fever, chills, headache, rash, CP, palpitations, weakness, numbness. Time Seen by Provider: 08/07/18 00:40 Chief Complaint (Nursing): High Blood Pressure History Per: Patient History/Exam Limitations: no limitations Onset/Duration Of Symptoms: Days (2) Current Symptoms Are (Timing): Still Present Initiating Event: Upper Respiratory Illness Quality: Tightness Exacerbating Factor(s): Exertion, Laying Flat Current Respiratory Medications: See Home Med List Recent travel outside of the [place]: No Additional History Per: Patient Past Medical History Reviewed: Historical Data, Nursing Documentation, Vital Signs Vital Signs: Last Vital Signs Temp 97.5 F L 08/07/18 00:22 Pulse 69 08/07/18 00:22 Resp 20 08/07/18 00:22 BP 120/70 08/07/18 00:22 Pulse Ox 99 08/07/18 00:22 - Medical History PMH: Atrial Fibrillation, Cardia Arrhythmia, CHF, HTN, Hypercholesterolemia, TIA Denies: Chronic Kidney Disease Surgical History: Appendectomy Family History: States: Unknown Family Hx - Social History Hx Tobacco Use: Yes Hx Alcohol Use: Yes Hx Substance Use: No - Immunization History Hx Tetanus Toxoid Vaccination: No Hx Influenza Vaccination: No Hx Pneumococcal Vaccination: No Review Of Systems Except As Marked, All Systems Reviewed And Found Negative. Respiratory: Positive for: Shortness of Breath, SOB with Excertion Physical Exam - Physical Exam Additional Physical Exam Comments: Constitutional: No acute distress. Obese Head: Normocephalic. Atraumatic. Eyes: PERRL. ENT: Moist mucous membranes. Neck: Supple. Cardiovascular: Irregular rate. Radial pulse 2+ bilaterally. Tachycardic Chest: No tenderness. Respiratory: Clear to auscultation bilaterally. GI: Soft. Nontender. Obese Back: No CVA tenderness. Musculoskeletal: No tenderness or swelling of extremities. Skin: No rash. Extremities: Lower extremities edema Neurologic: Alert, no focal deficit. ED Course And Treatment - Laboratory Results Result Diagrams: 08/07/18 01:49 08/07/18 01:49 O2 Sat by Pulse Oximetry: 99 (On RA) Pulse Ox Interpretation: Normal Medical Decision Making Medical Decision Making: Plan: * Labs * CXR * Lasix 40 mg IVP EKG * AFIV 160 BPM, No ST/T wave abnormalities CXR * Cardiomegaly Disposition Discussed With : Jake Vidal Doctor Will See Patient In The: Hospital - Disposition Disposition: HOSPITALIZED Disposition Time: 03:00 Condition: FAIR Forms: [employer] ([place]) - Clinical Impression Clinical Impression: CHF exacerbation, Noncompliance, Atrial fibrillation - Scribe Statement The provider has reviewed the documentation as recorded by the Scribe Tristan Sebastian All medical record entries made by the Scribe were at my direction and pers onally dictated by me. I have reviewed the chart and agree that the record accurately reflects my personal performance of the history, physical exam, medical decision making, and the department course for this patient. I have also personally directed, reviewed, and agree with the discharge instructions and disposition.
[2018-08-07 01:55] LABS: BASO # 0.1 K/uL (0.0-0.2); EOS # 0.2 K/uL (0.0-0.7); EOS % 2.6 % (0.0-4.0); HEMOGLOBIN 15.1 g/dL (12.0-18.0); LYMPH # 1.5 K/uL (1.0-4.3); LYMPH % 26.4 % (20.0-40.0); MEAN CELL VOLUME 96.3 fL (80.0-94.0); MEAN CORPUSCULAR HEMOGLOBIN 32.4 pg (27.0-31.0); MEAN CORPUSCULAR HGB CONC 33.6 g/dL (33.0-37.0); MEAN PLATELET VOLUME 8.6 fL (7.2-11.7); MONO # 0.7 K/uL (0.0-0.8); MONO % 12.2 % (0.0-10.0); NEUT # 3.4 K/uL (1.8-7.0); NEUT % 57.8 % (50.0-75.0); NRBC % 0.1 % (0.0-2.0); RBC 4.66 Mil/uL (4.40-5.90); RED CELL DISTRIBUTION WIDTH 15.9 % (11.5-14.5); WHITE BLOOD COUNT 5.9 K/uL (4.8-10.8)
[2018-08-07 02:10] LABS: ALB/GLOB RATIO 1.3 (1.0-2.1); ALT/SGPT 22 U/L (21-72); AST/SGOT 28 U/L (17-59); BLOOD UREA NITROGEN 15 mg/dL (9-20); GFR NON-AFRICAN AMERICAN > 60
[2018-08-07 02:20] LABS: B-TYPE NATRIURETIC PEPTIDE 466 pg/mL (0-450); CK-MB 0.97 ng/mL (0.0-3.38)
[2018-08-07 03:19] LABS: INR 1.2; PROTHROMBIN TIME 12.9 SECONDS (9.7-12.2)
[2018-08-07 08:40] LABS: CK-MB 0.73 ng/mL (0.0-3.38)
--- NOTE | 2018-08-07 12:32 | RAD ---
Date of service: 08/07/2018 HISTORY: dyspnea COMPARISON: Comparison is made with 01/02/2018 TECHNIQUE: 1 view obtained. FINDINGS: LUNGS: No active pulmonary disease. PLEURA: No significant pleural effusion identified, no pneumothorax apparent. CARDIOVASCULAR: No aortic atherosclerotic calcification present. Cardiomegaly is noted. No pulmonary vascular congestion. OSSEOUS STRUCTURES: No significant abnormalities. VISUALIZED UPPER ABDOMEN: Normal. OTHER FINDINGS: None. IMPRESSION: No active disease.
[2018-08-07 14:39] VITALS: RESP 20
--- NOTE | 2018-08-07 21:05 | HP ---
HISTORY OF PRESENT ILLNESS: This is a 43-year-old white male who came to the emergency room with orthopnea, dyspnea on exertion, and tachycardia. The patient was unable to walk up stairs. Lying down flat gives him more shortness of breath. The patient also complained of swelling of the legs. The patient is noncompliant to the medications. The patient denies having chills, fever, rash, or palpitations. REVIEW OF SYSTEMS: CARDIOVASCULAR: As mentioned above. RESPIRATORY: Positive for shortness of breath. GASTROINTESTINAL: Negative for nausea, vomiting, and abdominal pain. CENTRAL NERVOUS SYSTEM: No focal neurological complaints offered. EXTREMITIES: Edema of the legs present. PAST MEDICAL HISTORY: Atrial fibrillation, cardiac arrhythmia, congestive heart failure, hypertension, hypercholesterolemia, and TIA. FAMILY HISTORY: No known inherited disease. SOCIAL HISTORY: Tobacco and alcohol positive. Denies use of illicit drugs. ALLERGIES: THE PATIENT IS NOT ALLERGIC TO ANY MEDICATIONS. MEDICATIONS: Reviewed by me. PHYSICAL EXAMINATION: GENERAL: This is a 43-year-old white male, tachypneic, dyspneic VITAL SIGNS: Temperature 97.5, pulse 69, respirations 20, and blood pressure 120/70 mmHg. Pulse oximetry is 99% on room air. HEENT: Normal. NECK: JVP is flat. Carotids, no bruits. LUNGS: No rales. No wheezing. HEART: S1 and S2 normal. No gallop, no murmur. ABDOMEN: Soft, nontender. No organomegaly. CENTRAL NERVOUS SYSTEM: No focal neurological deficits. EXTREMITIES: Edema of the legs present. LABORATORY DATA: On admission, lab work is within normal limits. EKG shows atrial fibrillation with rapid ventricular rate. IMPRESSION: Congestive heart failure exacerbation. Noncompliant to the medications. PLAN: The patient will be admitted to the floor. Will give diuretics. Will control blood pressure and heart rate. Other workup as needed. Jake Vidal MD
--- NOTE | 2018-08-08 15:05 | CP.PCM.PN ---
Subjective - Date & Time of Evaluation Date of Evaluation: 08/08/18 Time of Evaluation: 10:00 - Subjective Subjective: SOB PRESENT. LEG SWELLING PRESENT. A. FIB. Objective - Vital Signs/Intake and Output Vital Signs (last 24 hours): Temp Pulse Resp BP Pulse Ox 97.9 F 92 H 20 150/96 H 96 08/08/18 08:31 08/08/18 11:45 08/08/18 08:31 08/08/18 09:48 08/08/18 08:31 - Medications Medications: Current Medications Acetaminophen (Tylenol 325mg Tab) 650 mg PO Q6 PRN PRN Reason: Pain, moderate (4-7) Apixaban (Eliquis) 5 mg PO BID [facility] Last Admin: 08/08/18 09:48 Dose: 5 mg Carvedilol (Coreg) 25 mg PO BID [facility] Last Admin: 08/08/18 09:48 Dose: 25 mg Furosemide (Lasix) 40 mg IVP Q12 [facility] Last Admin: 08/08/18 09:48 Dose: 40 mg Lisinopril (Zestril) 20 mg PO DAILY [facility] Last Admin: 08/08/18 09:48 Dose: 20 mg Spironolactone (Aldactone) 25 mg PO DAILY [facility] Last Admin: 08/08/18 09:48 Dose: 25 mg - Labs Labs: 08/07/18 01:49 08/07/18 01:49 PT 12.9 SECONDS (9.7-12.2) H 08/07/18 02:54 INR 1.2 08/07/18 02:54 APTT 36 SECONDS (21-34) H 08/07/18 02:54 - Constitutional Appears: No Acute Distress, Chronically Ill - Eye Exam Eye Exam: PERRL - ENT Exam ENT Exam: Mucous Membranes Moist - Respiratory Exam Respiratory Exam: Rales, NORMAL BREATHING PATTERN - Cardiovascular Exam Cardiovascular Exam: Irregular Rhythm, +S1, +S2 - GI/Abdominal Exam GI & Abdominal Exam: Soft, Normal Bowel Sounds - Exam Exam: Circumcision, NORMAL INSPECTION External exam: NORMAL EXTERNAL EXAM Speculum exam: NORMAL SPECULUM EXAM Bimanual exam: NORMAL BIMANUAL EXAM - Extremities Exam Extremities Exam: Pedal Edema, Tenderness - Back Exam Back Exam: NORMAL INSPECTION - Neurological Exam Neurological Exam: Alert, Awake, CN II-XII Intact, Normal Gait, Oriented x3 - Psychiatric Exam Psychiatric exam: Normal Affect, Normal Mood Assessment and Plan - Assessment and Plan (Free Text) Assessment: A. FIB CHF. Plan: FOR DIURETICS.
--- NOTE | 2018-08-09 12:51 | CP.PCM.PN ---
Subjective - Date & Time of Evaluation Date of Evaluation: 08/09/18 Time of Evaluation: 12:49 - Subjective Subjective: condition remains same. weston present. swelling of legs+ non complaint to meds. echo 01/19 dilated la. mild tr. diuresis good. Objective - Vital Signs/Intake and Output Vital Signs (last 24 hours): Temp Pulse Resp BP Pulse Ox 97.5 F L 85 20 109/73 95 08/09/18 07:00 08/09/18 07:00 08/09/18 07:00 08/09/18 10:47 08/09/18 07:00 - Medications Medications: Current Medications Acetaminophen (Tylenol 325mg Tab) 650 mg PO Q6 PRN PRN Reason: Pain, moderate (4-7) Apixaban (Eliquis) 5 mg PO BID [facility] Last Admin: 08/09/18 10:20 Dose: 5 mg Carvedilol (Coreg) 25 mg PO BID [facility] Last Admin: 08/09/18 10:20 Dose: 25 mg Furosemide (Lasix) 40 mg IVP Q12 [facility] Last Admin: 08/09/18 10:47 Dose: 40 mg Lisinopril (Zestril) 20 mg PO DAILY [facility] Last Admin: 08/09/18 10:19 Dose: 20 mg Pneumococcal Polyvalent Vaccine (Pneumovax 23 Vaccine) 0.5 ml IM .ONCE ONE Stop: 08/11/18 10:01 Spironolactone (Aldactone) 25 mg PO DAILY [facility] Last Admin: 08/09/18 10:19 Dose: 25 mg - Labs Labs: 08/07/18 01:49 08/07/18 01:49 PT 12.9 SECONDS (9.7-12.2) H 08/07/18 02:54 INR 1.2 08/07/18 02:54 APTT 36 SECONDS (21-34) H 08/07/18 02:54 - Constitutional Appears: No Acute Distress, Chronically Ill - Eye Exam Eye Exam: PERRL - ENT Exam ENT Exam: Mucous Membranes Moist - Neck Exam Neck Exam: Full ROM, Normal Inspection. absent: Lymphadenopathy - Respiratory Exam Respiratory Exam: Rales, NORMAL BREATHING PATTERN - Cardiovascular Exam Cardiovascular Exam: Irregular Rhythm, +S1, +S2 - GI/Abdominal Exam GI & Abdominal Exam: Soft, Normal Bowel Sounds - Extremities Exam Extremities Exam: Pedal Edema - Back Exam Back Exam: NORMAL INSPECTION Assessment and Plan - Assessment and Plan (Free Text) Assessment: a. fib chf. Plan: for iv lasix.
[2018-08-10 07:25] LABS: BASO # 0.1 K/uL (0.0-0.2); BASO % 1.1 % (0.0-2.0); EOS # 0.2 K/uL (0.0-0.7); EOS % 3.2 % (0.0-4.0); HEMOGLOBIN 16.8 g/dL (12.0-18.0); LYMPH # 1.4 K/uL (1.0-4.3); LYMPH % 26.1 % (20.0-40.0); MEAN CELL VOLUME 96.7 fL (80.0-94.0); MEAN CORPUSCULAR HEMOGLOBIN 32.5 pg (27.0-31.0); MEAN CORPUSCULAR HGB CONC 33.6 g/dL (33.0-37.0); MEAN PLATELET VOLUME 8.9 fL (7.2-11.7); MONO # 0.8 K/uL (0.0-0.8); NEUT # 2.9 K/uL (1.8-7.0); NEUT % 54.6 % (50.0-75.0); NRBC % 0.2 % (0.0-2.0); RBC 5.18 Mil/uL (4.40-5.90); RED CELL DISTRIBUTION WIDTH 15.5 % (11.5-14.5); WHITE BLOOD COUNT 5.2 K/uL (4.8-10.8)
[2018-08-10 07:49] LABS: ALB/GLOB RATIO 1.4 (1.0-2.1); ALBUMIN 4.1 g/dL (3.5-5.0); ALT/SGPT 28 U/L (21-72); AST/SGOT 26 U/L (17-59); BLOOD UREA NITROGEN 34 mg/dL (9-20); CALCIUM 8.8 mg/dl (8.6-10.4); GFR NON-AFRICAN AMERICAN 56
--- NOTE | 2018-08-10 12:48 | CP.PCM.PN ---
Subjective - Date & Time of Evaluation Date of Evaluation: 08/10/18 Time of Evaluation: 12:45 - Subjective Subjective: IMPROVING. SWELLING OF LEGS DOWN. LESS SOB. VS WNL. Objective - Vital Signs/Intake and Output Vital Signs (last 24 hours): Temp Pulse Resp BP Pulse Ox 97.4 F L 77 20 122/82 98 08/10/18 08:20 08/10/18 08:34 08/10/18 08:20 08/10/18 09:44 08/10/18 08:20 - Medications Medications: Current Medications Acetaminophen (Tylenol 325mg Tab) 650 mg PO Q6 PRN PRN Reason: Pain, moderate (4-7) Apixaban (Eliquis) 5 mg PO BID [facility] BEDS AT [facility] Last Admin: 08/10/18 09:44 Dose: 5 mg Carvedilol (Coreg) 25 mg PO BID [facility]CLUDE 234 BEDS AT THE [facility] Last Admin: 08/10/18 09:44 Dose: 25 mg Furosemide (Lasix) 40 mg IVP Q12 [facility]S [facility]CLUDE 234 BEDS AT THE [facility] Last Admin: 08/10/18 09:44 Dose: 40 mg Lisinopril (Zestril) 20 mg PO DAILY [facility]CLUDE 234 BEDS AT THE [facility] Last Admin: 08/10/18 09:43 Dose: 20 mg Pneumococcal Polyvalent Vaccine (Pneumovax 23 Vaccine) 0.5 ml IM .ONCE ONE Stop: 08/11/18 10:01 Spironolactone (Aldactone) 25 mg PO DAILY [facility]CLUDE 234 BEDS AT THE [facility] Last Admin: 08/10/18 09:44 Dose: 25 mg - Labs Labs: 08/10/18 07:07 08/10/18 07:07 PT 12.9 SECONDS (9.7-12.2) H 08/07/18 02:54 INR 1.2 08/07/18 02:54 APTT 36 SECONDS (21-34) H 08/07/18 02:54 - Constitutional Appears: No Acute Distress - Eye Exam Eye Exam: EOMI, Normal appearance, PERRL Pupil Exam: NORMAL ACCOMODATION, PERRL - ENT Exam ENT Exam: Mucous Membranes Moist, Normal Exam - Neck Exam Neck Exam: Full ROM, Normal Inspection. absent: Lymphadenopathy - Respiratory Exam Respiratory Exam: Clear to Ausculation Bilateral, NORMAL BREATHING PATTERN - Cardiovascular Exam Cardiovascular Exam: Irregular Rhythm, +S1, +S2 - GI/Abdominal Exam GI & Abdominal Exam: Soft, Normal Bowel Sounds - Extremities Exam Extremities Exam: Full ROM, Normal Capillary Refill, Normal Inspection. absent: Joint Swelling, Pedal Edema - Back Exam Back Exam: NORMAL INSPECTION - Neurological Exam Neurological Exam: Alert, Awake, CN II-XII Intact, Normal Gait, Oriented x3 Assessment and Plan - Assessment and Plan (Free Text) Assessment: STABLE Plan: D/C HOME. CT SAME MEDS.
[2018-08-11 08:56] VITALS: PULSE 70
[2018-08-11 09:58] VITALS: BP 121/72
[2018-08-11] MEDS ORDERED: Pneumococcal 23-Valent Vaccine IM ONE (10:00)
[2018-08-11 10:54] VITALS: TEMP 97.4; O2SAT 98
--- NOTE | 2018-08-11 12:54 | CP.PCM.PN ---
Subjective - Date & Time of Evaluation Date of Evaluation: 08/11/18 Time of Evaluation: 09:00 - Subjective Subjective: BETTER. NO CP. Objective - Vital Signs/Intake and Output Vital Signs (last 24 hours): Temp Pulse Resp BP Pulse Ox 97.4 F L 70 20 121/72 98 08/11/18 07:00 08/11/18 08:52 08/11/18 07:00 08/11/18 10:00 08/11/18 07:00 Intake and Output: 08/11/18 08/11/18 06:59 18:59 Intake Total 500 360 Balance 500 360 - Labs Labs: 08/10/18 07:07 08/10/18 07:07 PT 12.9 SECONDS (9.7-12.2) H 08/07/18 02:54 INR 1.2 08/07/18 02:54 APTT 36 SECONDS (21-34) H 08/07/18 02:54 - Constitutional Appears: Chronically Ill - Eye Exam Eye Exam: PERRL - ENT Exam ENT Exam: Mucous Membranes Moist - Respiratory Exam Respiratory Exam: Clear to Ausculation Bilateral, NORMAL BREATHING PATTERN - Cardiovascular Exam Cardiovascular Exam: Irregular Rhythm, +S1, +S2 - GI/Abdominal Exam GI & Abdominal Exam: Soft, Normal Bowel Sounds Assessment and Plan - Assessment and Plan (Free Text) Assessment: CHF, Plan: FOR D/C HOME.
== END 2018-08-11 11:54 | disposition home or self-care (01) | DRG 293 ==
LOC: C.ER 00:05 → C.9E 06:06 → C.5S 13:31
PROVIDERS: ADMIT Internal Medicine; ATTEND Internal Medicine
DX: I11.0 Hypertensive heart disease with heart failure (principal); I50.9 Heart failure, unspecified; I48.91 Unspecified atrial fibrillation; E78.00 Pure hypercholesterolemia, unspecified; F17.210 Nicotine dependence, cigarettes, uncomplicated; Z91.14 Patient's other noncompliance with medication regimen; Z91.19 Patient's noncompliance with other medical treatment and regimen; Z86.73 Personal history of transient ischemic attack (TIA), and cerebral infarction without residual deficits